=== PATIENT | male | born 1960 | race Caucasian/White ===

== ENCOUNTER 2018-04-10 06:40 | Inpatient (IN) ==
--- NOTE | 2018-03-24 09:21 | Anesthesiology Consultation ---
Date of Service March 24, 2018 Assessment & Plan (1) Encounter for pre-operative examination: Chart Review Chart Review: Acceptable Risk for Surgery and Patient seen in Pre Admission Testing Teaching & Discussion Instructed NPO after midnight before surgery, except medications with 15 cc of water. Medication instructions provided according to the PAT guidelines. History Surgery Operation Date: 04/10/18 13:00 Proposed Procedures p Right Total Hip Arthroplasty - Gabe Lopez MD Height/Weight Height: 5 ft 11 in Weight: 180.8 kg Allergies Allergy/AdvReac Type Severity Reaction Status Date / Time cephalexin Allergy Intermediate HIVES WITH Verified 03/20/18 13:18 SHORTNESS OF BREATH Medications Home Medications Medication Instructions Recorded Confirmed Last Taken naproxen sodium [Aleve] 440 mg PO BID PRN 03/20/18 03/20/18 Unknown Past Medical History Medical History Morbid obesity Osteoarthritis Past Family History Family History Sister Family history of diabetes mellitus Past Surgical History Surgical History History of appendectomy AGE 4 History of colonoscopy Past Anesthesia History No Hx of Anesthesia Complications and No Family Hx of Anesthesia Complications History of PONV No Motion Sickness Screening History of Motion Sickness: No Social History Smoking Status: Never smoker Do You Dip or Chew Tobacco: No Hx Alcohol Use: Yes Alcohol type: beer alcohol intake frequency: a few times a week Hx Substance Use: No substance use type: does not use Exercise / Class Metabolic Activity III < 4 Walking/Shop/Light housework (limited activity 2/2 hip pain currently. No SOB or CP with ambulation/grocery shopping) Review of Systems Pt denies any recent chest pain, shortness of breath, palpitations, cough, fever or URI. Physical Exam Vital Signs BP: 147/89 P: 62bpm SPO2: 93% RA T: 98.2 F R: 22 ENMT Mouth: + chipped teeth (few molars); no dental restorations and no loose teeth Thyromental Distance: > or= 3.5 Finger Breadths (3.5) Mallampati Class: II Neck normal visual inspection, + short neck and + thick neck; neck extension not limited Respiratory + labored breathing (mildly) Auscultation: + wheezes (end expiratory L lung) Cardiovascular Rate/Rhythm: regular rate and regular rhythm Heart Sounds: no murmur Vessels: no carotid bruit Extremities: no edema Skin Numerous skin tags on eyelids. Testing Electrocardiogram Date: 03/24/18 Findings: + NSR @ (60) NSIVCD. Compared to 07/02/15 EKG, TW inversion now evident in inferior leads. ( Lead III only) Chest X-Ray Date: 03/24/18 Findings: + NAD Laboratory Results 03/24/18 09:38 03/24/18 09:38 Blood Type A Positive 03/24/18 09:38 Antibody Screen NEGATIVE 03/24/18 09:38 PT 10.0 Seconds (9.0-12.0) 03/24/18 09:38 INR 1.0 (0.9-1.1) 03/24/18 09:38 APTT 24.2 Seconds (21.0-31.0) 03/24/18 09:38 Hemoglobin A1c 5.7 % (4.5-5.6) H 03/24/18 09:38
--- NOTE | 2018-03-24 09:30 | PAT Medication Instructions ---
Medication Instructions Date of Service March 24, 2018 Home Medications naproxen sodium [Aleve] 440 mg PO BID PRN ASK your surgeon for instructions naproxen sodium [Aleve] 440 mg PO BID PRN Other Notes If you have any questions please call us at [phone] or [phone] or [phone] or [phone]
--- NOTE | 2018-03-24 10:05 | XRay Report ---
XR chest Pre-admission PA/Lat CLINICAL HISTORY: pat preoperative evaluation COMPARISON STUDY: 07/02/2015 FINDINGS: The bones soft tissues and hemidiaphragms are normal. The cardiomediastinal silhouette is n ormal. The lungs are clear. The pulmonary vasculature is normal. IMPRESSION: Negative chest. The above report was generated using voice recognition software. It may contain grammatical, syntax or spelling errors. Electronically signed by: Tom Cárdenas M.D. 03/24/2018 10:03 AM
[2018-03-24 10:25] LABS: Basophils # (auto) 0.04 K/uL (0-0.2); Basophils % (auto) 0.6 %; Eosinophils # (auto) 0.35 K/uL (0-0.5); Eosinophils % (auto) 5.2 %; Hemoglobin 14.3 g/dL (14.0-18.0); Immature Granulocytes # (auto) 0.01 K/uL (0.00-0.02); Immature Granulocytes % (auto) 0.1 %; Lymphocytes # (auto) 1.55 K/uL (1.2-3.4); Lymphocytes % (auto) 22.8 %; Mean Corpuscular Hgb Conc 32.5 g/dL (32-36); Mean Corpuscular Volume 92.1 fL (80-100); Mean Platelet Volume 10.3 fL (7.4-10.4); Monocytes # (auto) 0.71 K/uL (0.11-0.59); Monocytes % (auto) 10.5 %; Neutrophils # (auto) 4.13 K/uL (1.4-6.5); Neutrophils % (auto) 60.8 %; Platelet Count 186 K/uL (130-400); RDW Coefficient of Variation 12.8 % (11.5-14.5); RDW Standard Deviation 43.1 fL (36.4-46.3); Red Blood Count 4.78 M/uL (4.7-6.1); White Blood Count 6.79 K/uL (4.8-10.8)
[2018-03-24 10:37] LABS: Partial Thromboplastin Ratio 0.9; Partial Thromboplastin Time 24.2 Seconds (21.0-31.0)
[2018-03-24 10:48] LABS: BUN Creatinine Ratio 14.8 (10-20); Calcium 8.7 mg/dl (8.5-10.1); Creatinine Clr Calc Pharmacy 136.3 ml/min; Est GFR (African American) 98.6; Est GFR (Non-African American) 85.1; Potassium 4.3 mmol/L (3.5-5.1)
[2018-03-24 11:16] LABS: Estimated Average Glucose 117 mg/dl
--- NOTE | 2018-04-05 18:34 | History and Physical Report ---
DATE OF ADMISSION: 04/10/2018 CHIEF COMPLAINT: Right hip pain. HISTORY OF PRESENT ILLNESS: Patient is a 57-year-old gentleman who presents with about 2 to 3-year history of gradually increasing right hip pain and discomfort. It has gotten to the point where it hurts him all the time. The more he walks, the more it hurts. He describes groin and thigh pain, some occasional knee pain. No swelling. He has been taking the antiinflammatories, which take the edge off at best. He has difficulty going up and down steps. He can tie his own shows and put his socks on. He would like to proceed with surgical treatment. PAST MEDICAL HISTORY: 1. Morbid obesity with a BMI of 55. 2. Sleep apnea. 3. Back pain. PAST SURGICAL HISTORY: Appendectomy. ALLERGIES: None. MEDICATIONS: Current medicines are antiinflammatories. SOCIAL HISTORY: A 57-year-old male, currently retired. 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 He does not smoke. FAMILY HISTORY: Noncontributory. REVIEW OF SYSTEMS: Negative for diabetes, neurologic problems, vascular problems, bleeding disorders. No chest pain, no shortness of breath. No history of DVT or PE. PHYSICAL EXAMINATION: GENERAL: A large middle-aged male. HEENT: Benign. NECK: Supple. No lymphadenopathy. RESPIRATORY: Lungs are clear to auscultation. CARDIOVASCULAR: Heart has a regular rate and rhythm. GASTROINTESTINAL: Abdomen is soft, nontender, nondistended. EXTREMITIES: Grossly neurovascularly intact except as follows: Examination of the right hip and leg reveals patient walks with bit of a limp, fairly large soft tissue envelope. Leg lengths appear fairly equal. He has a very stiff hip with pain with any type of motion. He can internally rotate to -10, external rotation to 20 degrees. Negative straight leg raise. No knee effusion. IMAGING: X-rays of the right hip were reviewed, show advanced right hip DJD. He has complete loss of his joint space. ASSESSMENT: A 57-year-old morbidly obese gentleman with advanced right hip degenerative joint disease. He has failed conservative treatment and would like to have his right hip replaced. PLAN: We had a long discussion as far as treatment. He would like to have his hip replaced. I did tell him with his size and obesity he is at increased risk for infection as well as complications such as blood clots and lung and cardiac problems. He is fully aware of this and would like to proceed. The risks and benefits of right total hip replacement were explained to the patient including but not limited to DVT, PE, , infection, neurological injury, vascular injury, bleeding problem, pain, limited range of motion, stiffness, failure to relieve his symptoms, persistent pain, etc. The patient understands and desires to proceed. Informed consent is obtained. Patient does live by himself. He is hoping to be discharged to home using [facility] home health program.
[~2018-04-10 06:40] MED LIST: ACETAMINOPHEN 500 MG TAB PO SCH; BUPIVACAINE 0.5 % 5 MG/1 ML PF 10ML VIAL ONE; CEFAZOLIN 3000MG 65 ML IV SCH; FAMOTIDINE 20 MG TAB PO SCH; GABAPENTIN 300 MG x 2 PO SCH; LR 60ML/HR IV SCH; METOCLOPRAMIDE HCL 10 MG TABLET PO SCH; SCOPOLAMINE 1.5 MG TDSY TD SCH; TRANEXAMIC ACID 1,000 MG **IV Pre-op IV SCH
--- NOTE | 2018-04-10 06:54 | History & Physical Bridge Note ---
Date of Service April 10, 2018 History & Physical Bridge Note I have examined the patient, reviewed the History & Physical and in the interval since the performance of the History & Physical I have noted the following changes of clinical significance: no changes noted
[2018-04-10] MEDS: LR 500ML BOLUS, THEN 15ML/HR IV SCH ×2 (07:10→13:53)
[2018-04-10] MEDS ORDERED: VANCOMYCIN CONSULT ACTIVE PRN ×2 (07:23→14:03)
[2018-04-10] MEDS ORDERED: VANCOMYCIN HCL 2,750 MG in SODIUM CHLORIDE 0.9% 500 ML IV SCH ×2 (07:30→20:00)
[2018-04-10] MEDS ORDERED: MoRPHine SULFATE PF 1 MG/ML 10 ML AMP/VIAL ONE (07:57)
[2018-04-10] MEDS ORDERED: fentaNYL citrate 100 MCG/2 ML VIAL ONE (07:58)
[2018-04-10] MEDS ORDERED: MIDAZOLAM HCL 1 MG/ML 2ML VIAL ONE ×3 (07:58→11:27)
[2018-04-10] MEDS ORDERED: NALOXONE HCL 1 MG in SODIUM CHLORIDE 0.9% 1000ML 1,000 ML IV PRN (08:49)
[2018-04-10] MEDS ORDERED: NALOXONE HCL 0.08 MG in SYRINGE 1.8 ML IV PRN (08:49)
[2018-04-10] MEDS ORDERED: ATROPINE SULFATE 0.1 MG/ML 10ML SYR IV PRN (08:49)
[2018-04-10] MEDS ORDERED: KETOROLAC 30 MG/ML VIAL IV PRN (08:49)
[2018-04-10] MEDS ORDERED: DiphenhydrAMINE HCL 50 MG/ML VIAL IV PRN (08:49)
[2018-04-10] MEDS ORDERED: ePHEDrine sulfate 50 MG/ML AMP IV PRN ×2 (08:49)
[2018-04-10] MEDS ORDERED: NALBUPHINE HCL INJ 10 MG/ML AMP IV PRN (08:49)
[2018-04-10] MEDS ORDERED: ONDANSETRON INJ 2 MG/ML 2 ML VIAL IV PRN (08:49)
[2018-04-10] MEDS ORDERED: MoRPHine SULFATE PF 1 MG/ML 10 ML AMP/VIAL INT SPINAL ONE (08:49)
[2018-04-10] MEDS ORDERED: LACTATED RINGER'S 500 ML IV PRN (08:49)
[2018-04-10] MEDS ORDERED: NALOXONE HCL 0.4 MG/1 ML VIAL/CARP IV PRN ×2 (08:49→14:03)
[2018-04-10] MEDS ORDERED: BACITRACIN INJ 50,000 UNIT VIAL ONE (08:56)
[2018-04-10] MEDS ORDERED: BUPIVACAINE/EPINEPHRINE 0.5% MPF 1:200,000 30 ML VIAL ONE (08:56)
[2018-04-10] MEDS ORDERED: HYDROmorphone INJ 0.5 MG/0.5 ML SYR IV PRN ×2 (09:00→14:03)
[2018-04-10] MEDS ORDERED: SODIUM CHLORIDE 0.9% 1000ML 1,000 ML IV SCH (09:00)
[2018-04-10] MEDS ORDERED: KETAMINE HCL INJ 50 MG/ML 10 ML VIAL ONE (09:00)
[2018-04-10] MEDS ORDERED: NO NARCOTICS OR SEDATIVES SCH (09:00)
[2018-04-10] MEDS ORDERED: ePHEDrine sulfate 50 MG/ML AMP ONE (10:28)
[2018-04-10] MEDS ORDERED: PROPOFOL IV EMULSION 10 MG/ML 20 ML VIAL IV ONE (10:28)
[2018-04-10] MEDS ORDERED: PHENYLEPHRINE 100MCG/ML 5ML SYR ONE (10:28)
[2018-04-10] MEDS ORDERED: ePHEDrine sulfate 50 MG/ML SYR ONE (10:28)
[2018-04-10] MEDS ORDERED: DiphenhydrAMINE HCL 50 MG/ML VIAL ONE (10:52)
[2018-04-10] MEDS ORDERED: HydrALAZINE HCL 20 MG/ML VIAL ONE (11:15)
[2018-04-10] MEDS ORDERED: REMIFENTANIL HCL 1 MG VIAL ONE (12:21)
--- NOTE | 2018-04-10 13:04 | Post Operative Brief Note ---
Immediate Post Op Note v1 Date of Surgery April 10, 2018 Pre & Post Diagnosis Operation Date: 04/10/18 09:05 Pre-Op Diagnosis: Right Hip Degenerative Joint Disease Post-Op Diagnosis: Right Hip Degenerative Joint Disease Procedure Operation Date: 04/10/18 09:05 Actual Procedures p Right Total Hip Replacement(Right) - Gabe Lopez MD Surgeon Gabe Lopez MD Insurance Collector Evelyne, PAC Estimated Blood Loss 500 Findings Consistent with Post-Op Diagnosis Fluids 1800 cc Specimens Right Femoral Head Drains Victor Catheter (16fr victor catheter placed by Amrita Stubbs PA-C, without difficulty; victor demonstrates clear yellow urine. Output measured and recorded by anesthesia.) Anesthesia Type Spinal MAC Complications none Disposition Accompanied Patient To Recovery: Yes Disposition: Recovery Room
--- NOTE | 2018-04-10 13:43 | Anesthesiology Progress Note ---
Date of Service April 10, 2018 Anesthesia Post Procedure Vital Signs Vital Signs: Temp Pulse Resp BP Pulse Ox 04/10/18 13:35 69 18 108/73 98 04/10/18 13:25 75 20 106/64 98 04/10/18 13:15 78 20 94/59 L 100 04/10/18 13:09 37.3 C 77 20 109/65 99 04/10/18 07:25 36.8 C 64 20 140/76 93 Pain Intensity Right Hip: Pain Intensity: 6 Notes Mental Status: alert / awake / arousable Patient Amnestic to Procedure: Yes Nausea / Vomiting: adequately controlled Pain: adequately controlled Airway Patency, RR, SpO2: stable & adequate BP & HR: stable & adequate Hydration State: stable & adequate Anesthetic Complications: no major complications apparent and Pt Satisfied with anesthetic care
[2018-04-10] MEDS: [UNRECOGNIZED DRUG - REMARK] SCH ×2 (13:52→13:54)
[2018-04-10] MEDS ORDERED: BISACODYL 10 MG SUPP PR PRN (14:03)
[2018-04-10] MEDS ORDERED: TAMSULOSIN HCL 0.4 MG CAP PO PRN (14:03)
[2018-04-10] MEDS ORDERED: ALUMINUM/MAGNESIUM SUSP 30 ML UDC PO PRN (14:03)
[2018-04-10] MEDS ORDERED: MAGNESIUM HYDROXIDE SUSP 30 ML UDC PO PRN (14:03)
--- NOTE | 2018-04-10 14:16 | XRay Report ---
XR hip 1V RT w pelvis CLINICAL HISTORY: Postoperative evaluation. COMPARISON: Pelvis and right hip radiographs February 20, 2018. FINDINGS: Alignment of the total right hip arthroplasty is anatomic. There are 2 acetabular screws. There are skin vi. There are no unexpected radiopaque foreign bodies. IMPRESSION: Expected findings following total right hip arthroplasty. Electronically signed by: Thompson Webster M.D. 04/10/2018 2:15 PM
[2018-04-10] MEDS: SODIUM CHLORIDE 0.9% 1000ML 1,000 ML IV SCH ×2 (14:38→20:08)
[2018-04-10] MEDS: ACETAMINOPHEN 500 MG TAB PO SCH ×2 (14:40→21:42)
[2018-04-10] MEDS: CHECK SCOPOLAMINE PATCH PLACEMENT SCH (16:45)
[2018-04-10] MEDS: ASCORBIC ACID 500 MG TAB PO SCH (16:46)
[2018-04-10] MEDS: FERROUS GLUCONATE 324 MG TAB PO SCH (16:46)
[2018-04-10] MEDS ORDERED: TRANEXAMIC ACID 1,000 MG in 0.9 % SODIUM CHLORIDE 100 ML IV SCH (19:00)
[2018-04-10] MEDS: SENNA 8.6 MG TAB PO SCH (20:22)
[2018-04-10] MEDS: DOCUSATE SODIUM 100 MG CAP PO SCH (20:22)
--- NOTE | 2018-04-10 22:12 | Progress Note ---
DATE: 04/10/2018 SUBJECTIVE: A 57-year-old gentleman postop from a right total hip replacement. He has done pretty well. He is not having any pain. No chest pain or shortness of breath. Not feeling dizzy or lightheaded. PHYSICAL EXAMINATION: VITAL SIGNS: Temperature 36.8. Vital signs stable. GENERAL: Today shows a pleasant very large middle-aged male lying in bed, looks comfortable. LUNGS: Clear to auscultation. HEART: Regular rate and rhythm. ABDOMEN: Soft, nontender, nondistended. EXTREMITIES: Grossly neurovascularly intact except as follows: Examination of right hip and leg reveals, leg lengths were equal. Hip is located. His dressing is clean, dry, and intact. He can dorsiflex and plantarflex his foot appropriately. He is neurologically intact. X-RAYS: X-rays of the right hip from recovery room were reviewed. It shows right uncemented total hip arthroplasty. Components looked to be in good position. No signs of problems. ASSESSMENT: A 57-year-old morbidly obese gentleman postop from a right hip replacement, doing pretty well. Surgery itself was quite challenging, but patient is doing well. His pain is controlled. He appears medically stable. PLAN: 1. DVT prophylaxis including thigh-high TEDs, SCDs, and aspirin twice a day. 2. PT/OT. Weightbear as tolerated. Right total hip protocol. 3. Pain control, doing well with current pain regimen. 4. IV antibiotics x24 hours. 5. Disposition: He is planning to be discharged to home with some home health and with the assistance of his sister once medically stable and recovered.
[2018-04-10] MEDS: ASPIRIN 81 MG ECTAB PO SCH (22:43)
--- NOTE | 2018-04-10 23:55 | Operative Report ---
DATE OF OPERATION: 04/10/2018 SURGEON: Gabe bolaños MD ASBESTOS WORKER: CITLALY Rojas PREOPERATIVE DIAGNOSIS: Right hip degenerative joint disease. POSTOPERATIVE DIAGNOSIS: Same. PROCEDURE PERFORMED: Right uncemented total hip arthroplasty. COMPLICATIONS: None. ESTIMATED BLOOD LOSS: 500 mL. FLUID REPLACEMENT: 1800 mL crystalloid fluid replacement. ANESTHESIA: Spinal. DRAINS: None. SPECIMENS: Right femoral head sent for pathology. OPERATIVE INDICATIONS: The patient is a 57-year-old morbidly obese gentleman with a BMI of 55.6. He has had a long history of right hip pain and discomfort. It has gotten to the point where it is really limiting his activities. He cannot walk more than a couple blocks. He cannot put his shoes and socks on. X-ray showed advanced hip arthritis. The patient elects to proceed with operative treatment. OPERATIVE FINDINGS: Operative findings revealed a very large soft tissue envelope. He had a very stiff hip with very little offset and a very short neck length. He had grade 4 [id number]-[id number] disease of the femoral head and acetabulum. OPERATIVE IMPLANTS: Operative implants consisted of: 1. Biomet size 54 G7 acetabular shell. 2. A 6.5 cancellous acetabular screws, one at 35 mm in length, one at 25 mm in length. 3. An apex hole eliminator. 4. A highly cross-linked polyethylene liner with a 54 mm outer diameter and 36 mm inner diameter. 5. DePuy size 11 KLA Corail femoral stem. 6. A -2/36 mm ceramic articular ball. OPERATIVE PROCEDURE: The patient was taken to the operating room, identified, and placed on the operating table in supine position. All contact areas were appropriately padded. IV antibiotics were provided by anesthesia team. A spinal anesthetic had been implemented in the holding area. The patient did receive vancomycin preoperatively due to his adverse reaction to cephalosporins in the past. A Huizar catheter was placed in sterile fashion. The patient was then placed in the left lateral decubitus position. This took about an extra 10 minutes of positioning this gentleman due to his large size and morbid obesity. He was positioned using a Stulberg hip positioner. Right hip and leg were then prepped and draped in usual sterile fashion. A posterolateral approach to the right hip was then performed through a curvilinear incision centered over the greater trochanter. Sharp dissection was carried through the subcutaneous tissue down to the level of the IT band and gluteal fascia. The soft tissue envelope was excessively thick about 6 inches in total. The IT band and gluteal fascia were then incised longitudinally in line with skin incision. The muscles and tissues were quite tight and contracted. The posterior capsule and external rotators were then released from the posterior aspect of the hip joint as a single layer, taking great care to protect the sciatic nerve at all times. I did have to release the gluteal sling in order to adequately release this gentleman's hip in order to do the surgery. The gluteal sling was released about 1 cm posterior to its attachment to the femur. Great care was taken to protect the sciatic nerve. The hip was then internally rotated and dislocated. Femoral neck osteotomy cut was made just a couple of millimeters above the lesser trochanter. The patient had a very short neck length, very little offset. The femur was then retracted anteriorly. I did have to do some release of the superior and anterior capsule in order to mobilize this hip anteriorly. The acetabulum was cleaned of all debris. The labrum was excised. I then reamed the acetabulum beginning with a size 47 and progressing up to 53. A 54 mm Biomet G7 acetabular shell was then placed in about 20 degrees of anteversion and 40 degrees of lateral opening. We worked hard to get this in proper position. It was fixed with two 6.5 cancellous acetabular screws. I did remove some osteophytes anteriorly. Attention was drawn to the femur. The proximal femur was entered with a cookie cutter followed by a canal finder. I then broached beginning with size 8 and progressing up to a 10. We got pretty good fit with the 10 and we elected to use this. We then trialed the hip. The +5 articular ball was just too tight and I could not even get it relocated. I could relocate the hip with the +1.5/36 mm articular ball. Due to his large soft tissue nature, there was impingement with flexion and internal rotation and I elected to place a kirby inferior and posterior to maximize his stability. The hip was fully stable in full extension and external rotation. It was a bit tight actually in extension. We elected to use these implants. All trial implants were removed. Malo hole eliminator was placed. A Biomet highly cross-linked polyethylene liner with a kirby was then placed inferior and posterior. We then placed a size 10 KLA stem. We impacted this in position. I used a +1.5/36 mm ceramic articular ball. However, we had great difficulty trying to relocate this due to soft tissue tightness. I did not relocate the hip even after about an hour of trying. We could get it inferior to the acetabulum, but we could not get it relocated in the acetabulum. My suspicion was that the offset was just too high in the hip abductors and were just too tight. After multiple attempts, we elected to place a shorter neck length. We removed the head from the stem. Upon doing this, the femoral stem came out the canal about 1 cm. Therefore, I broached to a size 11 and placed a size 11 KLA stem which had excellent fit. We then trialed the hip and relocated with a -2 articular ball. The hip was stable. Although this was a metal ball and not what I had planned, I felt this was the only option considering this gentleman's extreme soft tissue tightness. I then placed the -2/36 mm metal articular ball. Hip was located. It was found to be stable. We elected to proceed with closing. The wound was irrigated with copious amounts of pulsatile lavage solution. I did inject locally with 60 mL of 0.5% Marcaine with epinephrine. The posterior capsule and external rotators were repaired as a single layer through drill holes in the posterior trochanter. The gluteal sling was then repaired with #1 PDS suture in a [id number] fashion. The IT band and gluteal fascia were then closed with #1 PDS suture in running fashion. Subcutaneous tissue was then closed with 2 layers, with the deep layer with #2 Vicryl sutures and the subcutaneous tissue with 2-0 Dexon suture in a buried interrupted fashion. The skin was closed with skin vi. Leg was then cleaned and dried and a sterile dressing of Xeroform, 4 x 4's, ABD pad, and foam tape was applied. The patient was then transferred to the recovery room in stable condition. The patient tolerated the procedure well with no complications. This procedure took about 3 times what a normal hip replacement would due to the patient's morbid obesity and large stature. It took extra time positioning him, performing exposure, and performing the entire operation. It was exceedingly difficult. I do think the reduction was made a bit more difficult as by the time we were doing this, some of his spinal paralysis had probably worn off some, his muscles were again a bit tight. I attest to the content of the Intraoperative Record and any orders documented therein. Any exceptions are noted below. LEEANN
[2018-04-11] MEDS: CHECK SCOPOLAMINE PATCH PLACEMENT SCH (00:34)
[2018-04-11] MEDS: SODIUM CHLORIDE 0.9% 1000ML 1,000 ML IV SCH (01:42)
[2018-04-11] MEDS ORDERED: DC INTRASPINAL MORPHINE SCH (02:49)
[2018-04-11] MEDS ORDERED: OXYCODONE HCL IR 5 MG TAB (IMMEDIATE RELEASE) PO PRN (03:00)
[2018-04-11] MEDS ORDERED: ONDANSETRON INJ 2 MG/ML 2 ML VIAL IV PRN (03:00)
[2018-04-11] MEDS ORDERED: METOCLOPRAMIDE HCL INJ 5 MG/ML 2 ML VIAL IV PRN (03:00)
[2018-04-11] MEDS: ACETAMINOPHEN 500 MG TAB PO SCH ×3 (06:11→21:49)
[2018-04-11] MEDS: KETOROLAC 30 MG/ML VIAL IV SCH ×4 (06:11→23:31)
[2018-04-11] MEDS ORDERED: Nursing to Pharmacy Communication ONE (06:40)
[2018-04-11 06:54] LABS: Basophils # (auto) 0.02 K/uL (0-0.2); Basophils % (auto) 0.2 %; Eosinophils # (auto) 0.16 K/uL (0-0.5); Eosinophils % (auto) 1.5 %; Hematocrit (blood only) 37.8 % (42-52); Hemoglobin 12.3 g/dL (14.0-18.0); Immature Granulocytes # (auto) 0.02 K/uL (0.00-0.02); Immature Granulocytes % (auto) 0.2 %; Lymphocytes # (auto) 0.66 K/uL (1.2-3.4); Lymphocytes % (auto) 6.1 %; Mean Corpuscular Hgb Conc 32.5 g/dL (32-36); Mean Corpuscular Volume 92.6 fL (80-100); Mean Platelet Volume 9.7 fL (7.4-10.4); Monocytes # (auto) 0.67 K/uL (0.11-0.59); Monocytes % (auto) 6.2 %; Neutrophils # (auto) 9.28 K/uL (1.4-6.5); Neutrophils % (auto) 85.8 %; Platelet Count 145 K/uL (130-400); RDW Coefficient of Variation 13.2 % (11.5-14.5); RDW Standard Deviation 44.5 fL (36.4-46.3); Red Blood Count 4.08 M/uL (4.7-6.1); White Blood Count 10.81 K/uL (4.8-10.8)
[2018-04-11 07:28] LABS: BUN Creatinine Ratio 13.4 (10-20); Calcium 7.8 mg/dl (8.5-10.1); Creatinine Clr Calc Pharmacy 69.4 ml/min; Est GFR (African American) 44.6; Est GFR (Non-African American) 38.5; Potassium 4.1 mmol/L (3.5-5.1)
[2018-04-11] MEDS: FERROUS GLUCONATE 324 MG TAB PO SCH ×2 (07:33→16:09)
[2018-04-11] MEDS: ASCORBIC ACID 500 MG TAB PO SCH ×2 (07:33→16:09)
--- NOTE | 2018-04-11 07:47 | Progress Note ---
DATE: 04/11/2018 SUBJECTIVE: A 57-year-old gentleman postop day 1 from right hip replacement. He is doing pretty well. Has a little bit sore in the middle of the night last night, but doing better this morning. No chest pain or shortness of breath. Not feeling dizzy or lightheaded. OBJECTIVE: VITAL SIGNS: Temperature 36.8. Vital signs stable. GENERAL: Physical examination shows a large middle-aged male lying in bed, looks reasonably comfortable. EXTREMITIES: Examination of the right leg reveals the leg lengths to be equal. His hip is located. Dressing is clean, dry, and intact. He can dorsiflex and plantarflex his foot appropriately. He is neurologically intact. LABORATORY DATA: Hemoglobin 12.3. Hematocrit 37.8. Electrolytes are pending. ASSESSMENT: A 57-year-old gentleman postop day 1 from right hip replacement, doing pretty well. Pain has been reasonably well controlled. Hip is located. He is neurologically intact. PLAN: 1. DVT prophylaxis including thigh TEDs, SCDs, and aspirin twice a day. 2. PT/OT. Weight bear as tolerated. Right total hip protocol. 3. Pain control, doing well with current pain regimen. 4. Disposition: He is planning to be discharged to home likely with some home health once adequately recovered. His sister, I believe, is going to stay around and help him as well.
--- NOTE | 2018-04-11 08:24 | Anesthesiology Progress Note ---
Date of Service April 11, 2018 Anesthesia Post Procedure Vital Signs Vital Signs: Temp Pulse Resp BP BP Pulse Ox 04/11/18 07:09 36.8 C 71 18 115/73 94 04/11/18 03:36 37.2 C 74 18 121/74 94 04/11/18 02:00 18 91 04/11/18 01:00 16 92 04/11/18 00:00 20 93 04/10/18 23:55 37.1 C 75 18 88/62 L 100/66 92 04/10/18 23:00 18 93 04/10/18 22:00 18 92 04/10/18 21:00 79 20 92 04/10/18 20:00 85 14 93 04/10/18 19:01 16 95 04/10/18 19:00 36.8 C 78 18 102/71 96 04/10/18 18:00 18 95 04/10/18 17:00 36.4 C L 75 16 94/66 L 97 04/10/18 16:09 36.6 C 75 16 101/70 100 04/10/18 16:00 16 98 04/10/18 15:00 36.5 C 73 18 123/71 96 04/10/18 14:59 18 92 04/10/18 14:25 78 18 123/80 98 04/10/18 14:00 36.9 C 76 18 98/64 L 93 04/10/18 13:45 36.9 C 72 18 117/54 L 98 04/10/18 13:35 69 18 108/73 98 04/10/18 13:25 75 20 106/64 98 04/10/18 13:15 78 20 94/59 L 100 04/10/18 13:09 37.3 C 77 20 109/65 99 Pain Intensity Right Hip: Pain Intensity: 2 Notes Mental Status: alert / awake / arousable and participated in evaluation Patient Amnestic to Procedure: Yes Nausea / Vomiting: adequately controlled Pain: adequately controlled Airway Patency, RR, SpO2: stable & adequate BP & HR: stable & adequate Hydration State: stable & adequate Neuraxial Anesthesia: was administered and sensory block resolved Anesthetic Complications: no major complications apparent and Pt Satisfied with anesthetic care
[2018-04-11] MEDS: MULTIVITAMIN TAB PO SCH (08:47)
[2018-04-11] MEDS: ASPIRIN 81 MG ECTAB PO SCH ×2 (08:47→20:18)
[2018-04-11] MEDS: TAPENTADOL HCL ER 50 MG TABCR PO SCH ×2 (08:50→20:18)
[2018-04-11] MEDS: DOCUSATE SODIUM 100 MG CAP PO SCH ×2 (08:51→20:18)
[2018-04-11] MEDS ORDERED: ASPIRIN 81 MG ECTAB PO SCH (09:00)
[2018-04-11] MEDS: SENNA 8.6 MG TAB PO SCH (20:18)
[2018-04-12] MEDS: KETOROLAC 30 MG/ML VIAL IV SCH (05:27)
[2018-04-12] MEDS: ACETAMINOPHEN 500 MG TAB PO SCH (06:12)
[2018-04-12 06:53] LABS: BUN Creatinine Ratio 13.6 (10-20); Calcium 8.2 mg/dl (8.5-10.1); Creatinine Clr Calc Pharmacy 57.9 ml/min; Est GFR (African American) 35.9; Est GFR (Non-African American) 30.9; Potassium 3.9 mmol/L (3.5-5.1)
[2018-04-12 07:29] VITALS: PULSE 63; TEMP 97.7; O2SAT 95
[2018-04-12] MEDS: FERROUS GLUCONATE 324 MG TAB PO SCH (08:58)
[2018-04-12] MEDS: DOCUSATE SODIUM 100 MG CAP PO SCH (08:58)
[2018-04-12] MEDS: ASCORBIC ACID 500 MG TAB PO SCH (08:58)
[2018-04-12] MEDS: ASPIRIN 81 MG ECTAB PO SCH (08:59)
[2018-04-12] MEDS: MULTIVITAMIN TAB PO SCH (08:59)
[2018-04-12] MEDS: TAPENTADOL HCL ER 50 MG TABCR PO SCH (08:59)
[2018-04-12 09:37] VITALS: BP 122/74
--- NOTE | 2018-04-12 09:48 | Progress Note ---
DATE: 04/12/2018 SUBJECTIVE: A 57-year-old gentleman postop day 2 from right hip replacement. He is doing quite well. Pain is controlled. No chest pain or shortness of breath. Not feeling dizzy or lightheaded. OBJECTIVE: VITAL SIGNS: Temperature is 36.5. Vital signs are stable. PHYSICAL EXAMINATION: GENERAL: Reveals a pleasant, middle-aged male. He is getting around, moving from his bed to the chair this morning quite well. EXTREMITIES: Examination of the right hip reveals incision to be clean, dry and intact. Thigh is soft and supple. Not much in the way of swelling. No significant drainage. He is neurologically intact. Hip is located. ASSESSMENT: A 57-year-old gentleman postoperative day 2 from right hip replacement, doing quite well. His pain is controlled. PLAN: 1. DVT prophylaxis including thigh-high TEDs, SCDs, and aspirin twice a day. 2. PT/OT. Weight bear as tolerated. Right total hip protocol. 3. Pain control, doing well with current pain regimen. 4. Disposition: Plan to discharge to home with home health later today.
--- NOTE | 2018-04-19 08:03 | Discharge Summary ---
ADMITTING PHYSICIAN AND SURGEON: Gabe Lopez MD ADMITTING DIAGNOSIS: Right hip degenerative joint disease. SURGERY PERFORMED: Right total hip arthroplasty. SECONDARY DIAGNOSES: Morbid obesity, sleep apnea, back pain. CONSULTS: None obtained. HISTORY AND PHYSICAL EXAMINATION: Well documented in the patient's chart. HOSPITAL COURSE: The patient was admitted on 04/10/2018, underwent a total hip arthroplasty, tolerated the procedure well. There were no complications. He was transferred to the PACU postoperatively and later to the orthopedic floor for further care. He was given vancomycin for antibiotic prophylaxis, RUBEN stockings, SCDs and aspirin for DVT prophylaxis. Hemoglobin, hematocrit and vital signs were monitored during his hospital stay and remained stable. He did not require any blood transfusions. There were no complications. By postoperative day 2, he was tolerating a regular diet, pain was controlled with oral pain medicine. He was participating in physical therapy. On postop day 2, he was discharged home, set up with home health services. He was given printed discharge instructions including new prescriptions for extra-strength Tylenol, aspirin and oxycodone. Continue his home medications. Continue physical therapies, weightbearing as tolerated, RUBEN stockings, total hip precautions. Follow up in approximately 2 weeks postoperatively or sooner if there are any problems or concerns.
== END 2018-04-12 12:31 | disposition home health service (06) | DRG 470 ==
LOC: ASU 06:40 → 3E 13:08

== ENCOUNTER 2021-10-02 12:31 | Inpatient (IN) ==
--- NOTE | 2021-10-02 13:11 | XRay Report ---
SINGLE VIEW CHEST CLINICAL HISTORY: Preoperative examination. FINDINGS: An AP, portable, upright chest radiograph is compared to study dated 03/24/2018. The examinat ion is degraded by portable technique, large body habitus, and apical lordotic positioning. The hear t is enlarged. There is pulmonary vascular congestion. There is elevation of the right hemidiaphragm with bibasilar atelectasis. Question small pleural effusions. No pneumothorax is seen. The bony thora x is grossly intact. IMPRESSION: 1. Cardiomegaly with pulmonary vascular congestion. 2. Question small pleural effusions. ACT 112: Negative or not required by law. Electronically signed by: Jayce Antoine M.D. 10/02/2021 1:10 PM
--- NOTE | 2021-10-02 13:16 | Emergency Department Note ---
Impression & Plan New onset atrial fibrillation, Dyspnea on exertion, Hypoxia, New onset of congestive heart failure ED Provider Note INFORMANT: Patient ED PROVIDER(S): Guero Kidd MD CHIEF COMPLAINT: New onset A. fib PLAN: Disposition: Admitted Condition: Good Outpatient prescription management: none Referral: None MEDICAL DECISION MAKING: patient presented because of new onset A. fib. History is also concerned due to the shortness of breath. Patient was hypoxic on arrival. He responded well to supplemental oxygen and was feeling better with that. A work-up was initiated. Mild CHF noted on chest x-ray. His CBC and chemistry panel were unremarkable. Coag and troponin negative. BNP was mildly elevated. ECG revealed A. fib at 95 bpm. Acute ischemic changes were noted. The patient was given IV Lasix and Nitropaste. His blood pressure did improve with this. He will need further management in the hospital. [facility] Patient was evaluated in the ER and admitted for further management. Triage Nursing notes reviewed and agree them. Vital Signs: reviewed and remarkable for mild hypoxia and borderline tachycardia Differential diagnosis: Premature contractions, electrolyte abnormality, cardiac dysrhythmia, CHF, thyroid dysfunction, pulmonary embolism, infection, gastrointestinal, as well as other pathologies. Diagnostics interpreted by me: ECG: Twelve-lead ECG reveals a atrial fibrillation at 95 bpm. Left anterior fascicular block and nonspecific ST abnormality. No ST elevation or depression. No PVCs. Cardiac Monitoring: Cardiac monitoring ordered by me: The patient was placed on continuous cardiac monitoring and observed. It revealed A. fib at 104 beats per minute without ectopy. Imaging studies: Chest x-ray is consistent with mild CHF. HPI: The patient is a 60year old male who presents to the Emergency Room with complaints of irregular heartbeat. This started several weeks ago by history and is confirmed by his primary clinic today. Patient went for a visit after not seeing a doctor for about 3 years. He described having palpitations and shortness of breath with exertion. An ECG was performed and he was found to have atrial fibrillation. The patient also notes the following associated symptoms, leg redness and swelling. The patient has noted no relieving factors. Current pain is rated as 0/10. No prior history of A. fib. Pt denies LOC, headache, fevers, chills, diaphoresis, visual changes, neck pain, chest pain, nausea, vomiting, abdominal pain, back pain, melena, hematochezia, urinary symptoms, numbness, weakness, lymphadenopathy,or other complaints. ROS: See above HPI for pertinent positives & negatives. A total of 10 systems reviewed and were otherwise negative. PAST MEDICAL HISTORY:See Below , asthma PAST SURGICAL HISTORY:See Below, hip replacement FAMILY HISTORY:See Below SOCIAL HISTORY:See Below, non-smoker HOME MEDICATIONS:See Below ALLERGIES:See Below VITALS:See Below PHYSICAL EXAMINATION: GENERAL: Awake, alert, mildly dyspneic-appearing, in no distress HENT: Normocephalic, atraumatic. Oropharynx unremarkable. EYES: Normal conjunctiva. Sclera non-icteric. NECK: Inspection normal. Non-tender. Supple. No nuchal rigidity. FROM. No masses. RESPIRATORY: Clear to auscultation. No wheezes. No rales. Normal respiratory effort. CARDIAC: Mildly tachycardic rate. Irregular rhythm. No murmurs. No rubs. Extremities warm and well perfused. Pulses equal. No JVD. GI: Soft, non-distended. No tenderness to palpation. No rebound or guarding. No masses. RECTAL: Deferred. MUSCULOSKELETAL: Atraumatic. Chest examination reveals no tenderness. The back is symmetrical on inspection without obvious abnormality. There is no CVA tenderness to palpation. No joint edema. LOWER EXTREMITIES: Calves are equal size bilaterally and non-tender. 1+ edema. Chronic venous and mild erythematous discoloration which is worse on the right. NEURO: Normal sensorium. No sensory or motor deficits noted. SKIN: No rash or jaundice noted. Guero Kidd MD Past Med/Surg History Medical History Morbid obesity Osteoarthritis Surgical History History of appendectomy AGE 4 History of colonoscopy History of right hip replacement Family History Sister Family history of diabetes mellitus Social History Smoking Status: Never smoker Second Hand Exposure: Yes (ON OCC); Hx Alcohol Use: Yes Alcohol type: beer Hx Substance Use: No Preferred Language: Algerian Communication Ability: Effective Visual Impairment: No Limitations Hearing Ability: Normal Check Weigher Required: No Beliefs That Will Affect Care: None marital status: Single Current Living Situation: Alone current occupational status: retired How many Children do You have: 0 Other Information That Helps Us Care for You: No Feels Safe at Home: Yes Safety Concerns: Feels Safe At This Time Childhood Exposure to Second-Hand Smoke: No caffeine: Yes (coffee) during the past year weight has: increased > 10 lbs Dental Care, Regularly: No Physical Activity Frequency: Does not Exercise Seatbelt Use: never Sunscreen Use: No Do you think of yourself as: straight/heterosexual Gender Identity: Male Assistive Devices: Glasses Allergies Allergies Allergy/AdvReac Type Severity Reaction Status Date / Time cephalexin Allergy Intermediate HIVES WITH Verified 10/02/21 17:15 SHORTNESS OF BREATH Home Meds Home Medications Medication Instructions Recorded Confirmed No Known Home Medications 10/02/21 10/02/21 Results & Data (ED) Vital Signs Vital Signs - 24 hr 10/02/21 12:33 10/02/21 12:31 10/02/21 12:31 Temperature 36.7 C Temperature Source Temporal Artery Scan Pulse Rate 110 H Pulse Rate [Apical] 112 H Pulse Rate from SpO2 Sensor Pulse Rhythm Irregular Pulse Rhythm [Apical] Regular Pulse Strength [Apical] Normal Respiratory Rate 18 28 H Respiratory Effort / Characteristics Non-Labored Short of Breath SOB on Exertion Respiratory Depth Normal Normal Respiratory Pattern Regular Rapid/Shallow Tachypnea Blood Pressure 166/93 H Blood Pressure [Right Arm] 143/103 H Blood Pressure Mean 117 Blood Pressure Mean [Right Arm] 116 Blood Pressure Position Sitting Blood Pressure Position [Right Arm] Sitting Pulse Oximetry 87 L 82 L 94 Oxygen Delivery Method Room Air Room Air Nasal Cannula Nasal Cannula Oxygen Flow Rate 0 3 Sepsis Recent Fever Within 48 Hours No Sepsis New/Unexplained Change in Mental Status No Sepsis Action Taken by Nursing No Action Required Oxygen Flow Rate - Titration 3 Pulse Oximetry Post Tiitration 94 10/02/21 12:31 10/02/21 14:31 10/02/21 12:44 Temperature Temperature Source Pulse Rate 102 H Pulse Rate [Apical] 90 Pulse Rate from SpO2 Sensor 97 H Pulse Rhythm Pulse Rhythm [Apical] Irregular Pulse Strength [Apical] Normal Respiratory Rate 24 21 Respiratory Effort / Characteristics Grunting Short of Breath SOB on Exertion Non-Labored Spontaneous Respiratory Depth Normal Respiratory Pattern Rapid/Shallow Tachypnea Regular Blood Pressure Blood Pressure [Right Arm] Blood Pressure Mean Blood Pressure Mean [Right Arm] Blood Pressure Position Blood Pressure Position [Right Arm] Sitting Pulse Oximetry 96 95 Oxygen Delivery Method Nasal Cannula Nasal Cannula Oxygen Flow Rate 3 3 Sepsis Recent Fever Within 48 Hours Sepsis New/Unexplained Change in Mental Status Sepsis Action Taken by Nursing Oxygen Flow Rate - Titration Pulse Oximetry Post Tiitration 10/02/21 12:50 10/02/21 13:00 10/02/21 13:10 Temperature Temperature Source Pulse Rate 120 H 104 H Pulse Rate [Apical] Pulse Rate from SpO2 Sensor 113 H 82 Pulse Rhythm Pulse Rhythm [Apical] Pulse Strength [Apical] Respiratory Rate 26 H 29 H 23 Respiratory Effort / Characteristics Respiratory Depth Respiratory Pattern Blood Pressure Blood Pressure [Right Arm] Blood Pressure Mean Blood Pressure Mean [Right Arm] Blood Pressure Position Blood Pressure Position [Right Arm] Pulse Oximetry 94 94 Oxygen Delivery Method Oxygen Flow Rate Sepsis Recent Fever Within 48 Hours Sepsis New/Unexplained Change in Mental Status Sepsis Action Taken by Nursing Oxygen Flow Rate - Titration Pulse Oximetry Post Tiitration 10/02/21 13:20 10/02/21 13:24 10/02/21 13:24 Temperature Temperature Source Pulse Rate 107 H Pulse Rate [Apical] Pulse Rate from SpO2 Sensor Pulse Rhythm Pulse Rhythm [Apical] Pulse Strength [Apical] Respiratory Rate 25 H 22 Respiratory Effort / Characteristics Respiratory Depth Respiratory Pattern Blood Pressure 137/97 Blood Pressure [Right Arm] Blood Pressure Mean 110 Blood Pressure Mean [Right Arm] Blood Pressure Position Blood Pressure Position [Right Arm] Pulse Oximetry Oxygen Delivery Method Oxygen Flow Rate Sepsis Recent Fever Within 48 Hours Sepsis New/Unexplained Change in Mental Status Sepsis Action Taken by Nursing Oxygen Flow Rate - Titration Pulse Oximetry Post Tiitration 10/02/21 13:30 10/02/21 13:40 10/02/21 13:50 Temperature Temperature Source Pulse Rate 89 91 H 78 Pulse Rate [Apical] Pulse Rate from SpO2 Sensor 88 81 92 H Pulse Rhythm Pulse Rhythm [Apical] Pulse Strength [Apical] Respiratory Rate 21 21 19 Respiratory Effort / Characteristics Respiratory Depth Respiratory Pattern Blood Pressure Blood Pressure [Right Arm] Blood Pressure Mean Blood Pressure Mean [Right Arm] Blood Pressure Position Blood Pressure Position [Right Arm] Pulse Oximetry 96 97 98 Oxygen Delivery Method Oxygen Flow Rate Sepsis Recent Fever Within 48 Hours Sepsis New/Unexplained Change in Mental Status Sepsis Action Taken by Nursing Oxygen Flow Rate - Titration Pulse Oximetry Post Tiitration 10/02/21 14:00 10/02/21 14:03 10/02/21 14:03 Temperature Temperature Source Pulse Rate 95 H Pulse Rate [Apical] Pulse Rate from SpO2 Sensor 96 H 111 H Pulse Rhythm Pulse Rhythm [Apical] Pulse Strength [Apical] Respiratory Rate 21 18 Respiratory Effort / Characteristics Respiratory Depth Respiratory Pattern Blood Pressure 150/119 H Blood Pressure [Right Arm] Blood Pressure Mean 129 Blood Pressure Mean [Right Arm] Blood Pressure Position Blood Pressure Position [Right Arm] Pulse Oximetry 90 91 Oxygen Delivery Method Oxygen Flow Rate Sepsis Recent Fever Within 48 Hours Sepsis New/Unexplained Change in Mental Status Sepsis Action Taken by Nursing Oxygen Flow Rate - Titration Pulse Oximetry Post Tiitration 10/02/21 14:10 10/02/21 14:20 10/02/21 14:30 Temperature Temperature Source Pulse Rate 89 95 H 86 Pulse Rate [Apical] Pulse Rate from SpO2 Sensor 79 98 H 74 Pulse Rhythm Pulse Rhythm [Apical] Pulse Strength [Apical] Respiratory Rate 24 21 19 Respiratory Effort / Characteristics Respiratory Depth Respiratory Pattern Blood Pressure Blood Pressure [Right Arm] Blood Pressure Mean Blood Pressure Mean [Right Arm] Blood Pressure Position Blood Pressure Position [Right Arm] Pulse Oximetry 96 96 96 Oxygen Delivery Method Oxygen Flow Rate Sepsis Recent Fever Within 48 Hours Sepsis New/Unexplained Change in Mental Status Sepsis Action Taken by Nursing Oxygen Flow Rate - Titration Pulse Oximetry Post Tiitration 10/02/21 14:43 10/02/21 14:50 10/02/21 15:00 Temperature Temperature Source Pulse Rate 96 H 97 H Pulse Rate [Apical] Pulse Rate from SpO2 Sensor 87 92 H 96 H Pulse Rhythm Pulse Rhythm [Apical] Pulse Strength [Apical] Respiratory Rate 25 H 26 H Respiratory Effort / Characteristics Respiratory Depth Respiratory Pattern Blood Pressure Blood Pressure [Right Arm] Blood Pressure Mean Blood Pressure Mean [Right Arm] Blood Pressure Position Blood Pressure Position [Right Arm] Pulse Oximetry 79 L 96 96 Oxygen Delivery Method Oxygen Flow Rate Sepsis Recent Fever Within 48 Hours Sepsis New/Unexplained Change in Mental Status Sepsis Action Taken by Nursing Oxygen Flow Rate - Titration Pulse Oximetry Post Tiitration 10/02/21 15:01 10/02/21 15:01 10/02/21 15:10 Temperature Temperature Source Pulse Rate 92 H 100 H Pulse Rate [Apical] Pulse Rate from SpO2 Sensor 82 80 Pulse Rhythm Pulse Rhythm [Apical] Pulse Strength [Apical] Respiratory Rate 20 22 Respiratory Effort / Characteristics Respiratory Depth Respiratory Pattern Blood Pressure 158/123 H Blood Pressure [Right Arm] Blood Pressure Mean 134 Blood Pressure Mean [Right Arm] Blood Pressure Position Blood Pressure Position [Right Arm] Pulse Oximetry 96 96 Oxygen Delivery Method Oxygen Flow Rate Sepsis Recent Fever Within 48 Hours Sepsis New/Unexplained Change in Mental Status Sepsis Action Taken by Nursing Oxygen Flow Rate - Titration Pulse Oximetry Post Tiitration 10/02/21 15:20 10/02/21 15:30 10/02/21 15:30 Temperature Temperature Source Pulse Rate 84 101 H Pulse Rate [Apical] Pulse Rate from SpO2 Sensor 90 86 Pulse Rhythm Pulse Rhythm [Apical] Pulse Strength [Apical] Respiratory Rate 20 16 Respiratory Effort / Characteristics Respiratory Depth Respiratory Pattern Blood Pressure 173/126 H Blood Pressure [Right Arm] Blood Pressure Mean 141 Blood Pressure Mean [Right Arm] Blood Pressure Position Blood Pressure Position [Right Arm] Pulse Oximetry 97 97 Oxygen Delivery Method Oxygen Flow Rate Sepsis Recent Fever Within 48 Hours Sepsis New/Unexplained Change in Mental Status Sepsis Action Taken by Nursing Oxygen Flow Rate - Titration Pulse Oximetry Post Tiitration 10/02/21 15:40 10/02/21 15:45 10/02/21 15:45 Temperature Temperature Source Pulse Rate 91 H 95 H Pulse Rate [Apical] Pulse Rate from SpO2 Sensor 84 91 H Pulse Rhythm Pulse Rhythm [Apical] Pulse Strength [Apical] Respiratory Rate 24 22 Respiratory Effort / Characteristics Respiratory Depth Respiratory Pattern Blood Pressure 154/129 H Blood Pressure [Right Arm] Blood Pressure Mean 137 Blood Pressure Mean [Right Arm] Blood Pressure Position Blood Pressure Position [Right Arm] Pulse Oximetry 95 97 Oxygen Delivery Method Oxygen Flow Rate Sepsis Recent Fever Within 48 Hours Sepsis New/Unexplained Change in Mental Status Sepsis Action Taken by Nursing Oxygen Flow Rate - Titration Pulse Oximetry Post Tiitration 10/02/21 15:49 10/02/21 15:49 10/02/21 15:50 Temperature Temperature Source Pulse Rate 83 84 Pulse Rate [Apical] Pulse Rate from SpO2 Sensor 73 81 Pulse Rhythm Pulse Rhythm [Apical] Pulse Strength [Apical] Respiratory Rate 23 21 Respiratory Effort / Characteristics Respiratory Depth Respiratory Pattern Blood Pressure 171/111 H Blood Pressure [Right Arm] Blood Pressure Mean 131 Blood Pressure Mean [Right Arm] Blood Pressure Position Blood Pressure Position [Right Arm] Pulse Oximetry 96 97 Oxygen Delivery Method Oxygen Flow Rate Sepsis Recent Fever Within 48 Hours Sepsis New/Unexplained Change in Mental Status Sepsis Action Taken by Nursing Oxygen Flow Rate - Titration Pulse Oximetry Post Tiitration 10/02/21 15:56 10/02/21 15:56 10/02/21 16:16 Temperature Temperature Source Pulse Rate 102 H Pulse Rate [Apical] Pulse Rate from SpO2 Sensor 83 80 Pulse Rhythm Pulse Rhythm [Apical] Pulse Strength [Apical] Respiratory Rate 24 Respiratory Effort / Characteristics Respiratory Depth Respiratory Pattern Blood Pressure 145/86 H Blood Pressure [Right Arm] Blood Pressure Mean 105 Blood Pressure Mean [Right Arm] Blood Pressure Position Blood Pressure Position [Right Arm] Pulse Oximetry 96 88 L Oxygen Delivery Method Oxygen Flow Rate Sepsis Recent Fever Within 48 Hours Sepsis New/Unexplained Change in Mental Status Sepsis Action Taken by Nursing Oxygen Flow Rate - Titration Pulse Oximetry Post Tiitration 10/02/21 16:17 10/02/21 16:17 10/02/21 16:30 Temperature Temperature Source Pulse Rate 100 H 100 H Pulse Rate [Apical] Pulse Rate from SpO2 Sensor 87 84 Pulse Rhythm Pulse Rhythm [Apical] Pulse Strength [Apical] Respiratory Rate 15 16 Respiratory Effort / Characteristics Respiratory Depth Respiratory Pattern Blood Pressure 164/109 H Blood Pressure [Right Arm] Blood Pressure Mean 127 Blood Pressure Mean [Right Arm] Blood Pressure Position Blood Pressure Position [Right Arm] Pulse Oximetry 93 94 Oxygen Delivery Method Oxygen Flow Rate Sepsis Recent Fever Within 48 Hours Sepsis New/Unexplained Change in Mental Status Sepsis Action Taken by Nursing Oxygen Flow Rate - Titration Pulse Oximetry Post Tiitration Laboratory Data Result diagrams: 10/02/21 13:40 10/02/21 13:40 Lab Results 10/02/21 10/02/21 10/02/21 Range/Units 12:55 12:55 12:55 WBC (4.8-10.8) K/ul RBC (4.63-6.08) M/uL Hgb (14.0-18.0) g/dl Hct (40.1-51.0) % MCV (80.0-100.0) fL MCH (25.0-34.0) pg MCHC (32.0-36.0) g/dL RDW Std Deviation (36.4-46.3) fL RDW Coeff of Walt (11.5-14.5) % Plt Count (130-400) K/uL MPV (9.4-12.4) fL Immature Gran % (Auto) % Neut % (Auto) % Lymph % (Auto) % [place] % (Auto) % Eos % (Auto) % Baso % (Auto) % Neut # (Auto) (1.4-6.5) K/uL Lymph # (Auto) (1.2-3.4) K/uL [place] # (Auto) (0.24-0.82) K/uL Eos # (Auto) (0-0.50) K/uL Baso # (Auto) (0-0.2) K/uL Immature Gran # (Auto) (0.00-0.02) K/uL PT Cancelled INR Cancelled APTT Cancelled PTT Ratio Cancelled Sodium Cancelled Potassium Cancelled Chloride Cancelled Carbon Dioxide Cancelled Anion Gap Cancelled BUN Cancelled Creatinine Cancelled Est Cr Clr Drug Dosing Cancelled Est GFR ( Amer) Cancelled Est GFR (Non-Af Amer) Cancelled BUN/Creatinine Ratio Cancelled Glucose Cancelled Calcium Cancelled Magnesium Cancelled Total Bilirubin Cancelled AST Cancelled ALT Cancelled Alkaline Phosphatase Cancelled Troponin I High Sens Cancelled B-Natriuretic Peptide (0-100) pg/ml Total Protein Cancelled Albumin Cancelled Globulin Cancelled Albumin/Globulin Ratio Cancelled TSH Cancelled Urine Color Urine Appearance (Clear) Urine pH (4.5-7.5) Ur Specific Racco[place] (1.000-1.030) Urine Protein (Negative) Urine Glucose (UA) (Negative) Urine Ketones (Negative) Urine Blood (Negative) Urine Nitrite (Negative) Urine Bilirubin (Negative) Urine Urobilinogen (Negative) Ur Leukocyte Esterase (Negative) Urine WBC (Auto) (0-5) /hpf Urine RBC (Auto) (0-4) /hpf U Hyaline Cast (Auto) (0-5) /lpf U Epithel Cells (Auto) (0-5) /lpf Urine Bacteria (Auto) (Negative) SARS-CoV-2, RNA, NAAT (NEGATIVE) 10/02/21 10/02/21 10/02/21 Range/Units 13:35 13:40 13:40 WBC 6.71 (4.8-10.8) K/ul RBC 4.95 (4.63-6.08) M/uL Hgb 14.7 (14.0-18.0) g/dl Hct 45.8 (40.1-51.0) % MCV 92.5 (80.0-100.0) fL MCH 29.7 (25.0-34.0) pg MCHC 32.1 (32.0-36.0) g/dL RDW Std Deviation 46.7 H (36.4-46.3) fL RDW Coeff of Walt 13.7 (11.5-14.5) % Plt Count 170 (130-400) K/uL MPV 10.3 (9.4-12.4) fL Immature Gran % (Auto) 0.4 % Neut % (Auto) 68.5 % Lymph % (Auto) 15.5 % [place] % (Auto) 11.0 % Eos % (Auto) 3.9 % Baso % (Auto) 0.7 % Neut # (Auto) 4.59 (1.4-6.5) K/uL Lymph # (Auto) 1.04 L (1.2-3.4) K/uL [place] # (Auto) 0.74 (0.24-0.82) K/uL Eos # (Auto) 0.26 (0-0.50) K/uL Baso # (Auto) 0.05 (0-0.2) K/uL Immature Gran # (Auto) 0.03 H (0.00-0.02) K/uL PT INR APTT PTT Ratio Sodium Potassium Chloride Carbon Dioxide Anion Gap BUN Creatinine Est Cr Clr Drug Dosing Est GFR ( Amer) Est GFR (Non-Af Amer) BUN/Creatinine Ratio Glucose Calcium Magnesium Total Bilirubin AST ALT Alkaline Phosphatase Troponin I High Sens B-Natriuretic Peptide 178 H (0-100) pg/ml Total Protein Albumin Globulin Albumin/Globulin Ratio TSH Urine Color Urine Appearance (Clear) Urine pH (4.5-7.5) Ur Specific [place]acco[place] (1.000-1.030) Urine Protein (Negative) Urine Glucose (UA) (Negative) Urine Ketones (Negative) Urine Blood (Negative) Urine Nitrite (Negative) Urine Bilirubin (Negative) Urine Urobilinogen (Negative) Ur Leukocyte Esterase (Negative) Urine WBC (Auto) (0-5) /hpf Urine RBC (Auto) (0-4) /hpf U Hyaline Cast (Auto) (0-5) /lpf U Epithel Cells (Auto) (0-5) /lpf Urine Bacteria (Auto) (Negative) SARS-CoV-2, RNA, NAAT NEGATIVE (NEGATIVE) 10/02/21 10/02/21 10/02/21 Range/Units 13:40 14:27 14:27 WBC (4.8-10.8) K/ul RBC (4.63-6.08) M/uL Hgb (14.0-18.0) g/dl Hct (40.1-51.0) % MCV (80.0-100.0) fL MCH (25.0-34.0) pg MCHC (32.0-36.0) g/dL RDW Std Deviation (36.4-46.3) fL RDW Coeff of Walt (11.5-14.5) % Plt Count (130-400) K/uL MPV (9.4-12.4) fL Immature Gran % (Auto) % Neut % (Auto) % Lymph % (Auto) % [place] % (Auto) % Eos % (Auto) % Baso % (Auto) % Neut # (Auto) (1.4-6.5) K/uL Lymph # (Auto) (1.2-3.4) K/uL [place] # (Auto) (0.24-0.82) K/uL Eos # (Auto) (0-0.50) K/uL Baso # (Auto) (0-0.2) K/uL Immature Gran # (Auto) (0.00-0.02) K/uL PT 10.9 INR 1.0 APTT 25.4 PTT Ratio 0.9 Sodium 139 Potassium 4.4 Chloride 101 Carbon Dioxide 32 Anion Gap 6 BUN 16 Creatinine 1.08 Est Cr Clr Drug Dosing 109.6 Est GFR ( Amer) 84.8 Est GFR (Non-Af Amer) 73.2 BUN/Creatinine Ratio 14.8 Glucose 107 H Calcium 9.0 Magnesium 2.0 Total Bilirubin 0.6 AST 20 ALT 20 Alkaline Phosphatase 42 Troponin I High Sens 10.6 B-Natriuretic Peptide (0-100) pg/ml Total Protein 6.9 Albumin 3.9 Globulin 3.0 Albumin/Globulin Ratio 1.3 TSH 1.052 Urine Color Urine Appearance (Clear) Urine pH (4.5-7.5) Ur Specific [place] (1.000-1.030) Urine Protein (Negative) Urine Glucose (UA) (Negative) Urine Ketones (Negative) Urine Blood (Negative) Urine Nitrite (Negative) Urine Bilirubin (Negative) Urine Urobilinogen (Negative) Ur Leukocyte Esterase (Negative) Urine WBC (Auto) (0-5) /hpf Urine RBC (Auto) (0-4) /hpf U Hyaline Cast (Auto) (0-5) /lpf U Epithel Cells (Auto) (0-5) /lpf Urine Bacteria (Auto) (Negative) SARS-CoV-2, RNA, NAAT (NEGATIVE) 10/02/21 Range/Units 14:45 WBC (4.8-10.8) K/ul RBC (4.63-6.08) M/uL Hgb (14.0-18.0) g/dl Hct (40.1-51.0) % MCV (80.0-100.0) fL MCH (25.0-34.0) pg MCHC (32.0-36.0) g/dL RDW Std Deviation (36.4-46.3) fL RDW Coeff of Walt (11.5-14.5) % Plt Count (130-400) K/uL MPV (9.4-12.4) fL Immature Gran % (Auto) % Neut % (Auto) % Lymph % (Auto) % [place] % (Auto) % Eos % (Auto) % Baso % (Auto) % Neut # (Auto) (1.4-6.5) K/uL Lymph # (Auto) (1.2-3.4) K/uL [place] # (Auto) (0.24-0.82) K/uL Eos # (Auto) (0-0.50) K/uL Baso # (Auto) (0-0.2) K/uL Immature Gran # (Auto) (0.00-0.02) K/uL PT INR APTT PTT Ratio Sodium Potassium Chloride Carbon Dioxide Anion Gap BUN Creatinine Est Cr Clr Drug Dosing Est GFR ( Amer) Est GFR (Non-Af Amer) BUN/Creatinine Ratio Glucose Calcium Magnesium Total Bilirubin AST ALT Alkaline Phosphatase Troponin I High Sens B-Natriuretic Peptide (0-100) pg/ml Total Protein Albumin Globulin Albumin/Globulin Ratio TSH Urine Color Yellow Urine Appearance Clear (Clear) Urine pH 6.0 (4.5-7.5) Ur Specific [place] 1.012 (1.000-1.030) Urine Protein Negative (Negative) Urine Glucose (UA) Negative (Negative) Urine Ketones Negative (Negative) Urine Blood Negative (Negative) Urine Nitrite Negative (Negative) Urine Bilirubin Negative (Negative) Urine Urobilinogen Negative (Negative) Ur Leukocyte Esterase Trace H (Negative) Urine WBC (Auto) 1-5 (0-5) /hpf Urine RBC (Auto) 0-4 (0-4) /hpf U Hyaline Cast (Auto) 1-5 (0-5) /lpf U Epithel Cells (Auto) 0-5 (0-5) /lpf Urine Bacteria (Auto) Negative (Negative) SARS-CoV-2, RNA, NAAT (NEGATIVE) Administered Medications Apixaban (Apixaban 5 Mg Tablet) 5 mg PO BID NEHA Stop: 11/01/21 20:59 Last Admin: 10/02/21 19:52 Dose: 5 mg Documented By: AMRiri Furosemide (Furosemide Inj 20 Mg/2 Ml Vial) 40 mg IV Q12H NEHA Stop: 11/01/21 20:59 Last Admin: 10/02/21 19:55 Dose: 40 mg Documented By: AMM Metoprolol Tartrate (Metoprolol Tartrate 50 Mg Tab) 50 mg PO BID NEHA Stop: 11/01/21 20:59 Last Admin: 10/02/21 19:51 Dose: 50 mg Documented By: AMRiri Discontinued Medications Furosemide (Furosemide Inj 20 Mg/2 Ml Vial) 20 mg IV ONE ONE Stop: 10/02/21 15:26 Last Admin: 10/02/21 15:41 Dose: 20 mg Documented By: SYLVIA Nitroglycerin (Nitroglycerin 2% Ointment 30gm Tube) 0.5 inch EXT NOW STA Stop: 10/02/21 15:26 Last Admin: 10/02/21 15:40 Dose: 0.5 inch Documented By: SYLVIA Imaging Data Radiologist's Impression: Chest X-Ray 10/02/21 12:44 SINGLE VIEW CHEST CLINICAL HISTORY: Preoperative examination. FINDINGS: An AP, portable, upright chest radiograph is compared to study dated 03/24/2018. The examination is degraded by portable technique, large body habitus, and apical lordotic positioning. The heart is enlarged. There is pulmonary vascular congestion. There is elevation of the right hemidiaphragm with bibasilar atelectasis. Question small pleural effusions. No pneumothorax is seen. The bony thorax is grossly intact. IMPRESSION: 1. Cardiomegaly with pulmonary vascular congestion. 2. Question small pleural effusions. ACT 112: Negative or not required by law. Electronically signed by: Jayce Antoine M.D. 10/02/2021 1:10 PM Discharge Plan Visit Data Chief Complaint: Arrhythmia/Palpitations Stated Complaint: AFIB ED Provider: Geuro Kidd Discharge Problem: New onset atrial fibrillation, Dyspnea on exertion, Hypoxia, New onset of anabella estive heart failure Patient Disposition: Admitted As Inpatient Discharge Instructions Interventions: ED Discharge Assessment Last Done: 10/02/21 17:57
[2021-10-02 13:57] LABS: Basophils # (auto) 0.05 K/uL (0-0.2); Basophils % (auto) 0.7 %; Eosinophils # (auto) 0.26 K/uL (0-0.50); Eosinophils % (auto) 3.9 %; Hematocrit (blood only) 45.8 % (40.1-51.0); Hemoglobin 14.7 g/dl (14.0-18.0); Immature Granulocytes # (auto) 0.03 K/uL (0.00-0.02); Immature Granulocytes % (auto) 0.4 %; Lymphocytes # (auto) 1.04 K/uL (1.2-3.4); Lymphocytes % (auto) 15.5 %; Mean Corpuscular Hemoglobin 29.7 pg (25.0-34.0); Mean Corpuscular Hgb Conc 32.1 g/dL (32.0-36.0); Mean Corpuscular Volume 92.5 fL (80.0-100.0); Mean Platelet Volume 10.3 fL (9.4-12.4); Monocytes # (auto) 0.74 K/uL (0.24-0.82); Neutrophils # (auto) 4.59 K/uL (1.4-6.5); Neutrophils % (auto) 68.5 %; Platelet Count 170 K/uL (130-400); RDW Coefficient of Variation 13.7 % (11.5-14.5); RDW Standard Deviation 46.7 fL (36.4-46.3); Red Blood Count 4.95 M/uL (4.63-6.08); White Blood Count 6.71 K/ul (4.8-10.8)
[2021-10-02 14:20] LABS: Albumin Globulin Ratio 1.3 (0.9-2); Albumin Level 3.9 gm/dl (3.4-5.0); BUN Creatinine Ratio 14.8 (10-20); Bilirubin,Total 0.6 mg/dl (0.2-1.0); Creatinine Clr Calc Pharmacy 109.6 ml/min; Est GFR (African American) 84.8 ml/min; Est GFR (Non-African American) 73.2 ml/min; Potassium 4.4 mmol/L (3.5-5.1); Total Protein 6.9 gm/dl (6.0-8.3); Troponin I High Sensitivity 10.6 pg/ml (0-20)
[2021-10-02 14:56] LABS: Partial Thromboplastin Ratio 0.9; Partial Thromboplastin Time 25.4 Seconds (21.0-31.0); Prothrombin Time 10.9 Seconds (9.0-12.0)
[2021-10-02] MEDS ORDERED: FUROSEMIDE INJ 20 MG/2 ML VIAL IV ONE (15:25)
[2021-10-02] MEDS ORDERED: NITROGLYCERIN 2% OINTMENT 30GM TUBE EXT STA (15:25)
[2021-10-02 15:59] LABS: Appearance Urine Clear (Clear); Bacteria Urine Automated Negative (Negative); Bilirubin Urine Negative (Negative); Blood Urine Negative (Negative); Color Urine Yellow; Epithelial Cell Urine Auto 0-5 /lpf (0-5); Glucose Urine UA Negative (Negative); Ketones Urine Negative (Negative); Leukocyte Esterase Urine Trace (Negative); Nitrite Urine Negative (Negative); Protein Urine Negative (Negative); RBC Urine Automated 0-4 /hpf (0-4); Specific Gravity Urine 1.012 (1.000-1.030); Urobilinogen Urine Negative (Negative)
--- NOTE | 2021-10-02 16:53 | History & Physical Report ---
Date of Service October 02, 2021 Assessment & Plan (1) Acute and chronic respiratory failure with hypoxia: Plan: Suspect this is multifactorial including super morbid obesity, OHS/KENRICK, new atrial fibrillation, and possible mild acute CHF not yet defined Will admit to a monitored bed Start diuresis with Lasix at 40 mg every 12 hours, consider increase pending I's and O's, daily weights Check 2D echo as able (last done in 2013, EF was 65-70%, very limited study secondary to habitus) I did review chest x-ray personally, very limited study but does appear to have level of vascular congestion check TSH, fasting lipids, HgbA1c (2) New onset atrial fibrillation: Plan: Likely secondary to issues noted above, may also be a contributing cause Patient's heart rate currently in the low 100s, will start metoprolol 50 mg p.o. twice daily Check TSH. Electrolytes within normal limits, continue to follow I did discuss anticoagulation with the patient ([id number] is 2 based on currently available information) and he is agreeable, will start Eliquis 5 mg p.o. twice daily Will ask cardiology to evaluate for further recommendations (3) Morbid obesity: Plan: Discussed with patient as this is a reversible risk factors that he has ongoing chronic respiratory failure Also suggested that he may have KENRICK which is a causative factor, strongly suggested a sleep study after discharge. Can follow-up with primary care physician for this (4) History of right hip replacement: Plan: May be limiting motility. We will ask PT/OT to evaluate History of Present Illness Chief Complaint: SOB Primary Care Provider: Ronnie Metzger DO This is a 58-year-old male with past medical history of previous right hip replacement, asthma, previous cellulitis that presents today complaining of shortness of breath. Patient is a good historian. Patient tells me that he has had worsening SOB/MARC over the course of the past year. 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 He has noticed that he has been slowly more dyspneic on exertion, fighting is to stop to catch his breath even after mild exertion. He denies any chest pain but does note occasional palpitations. He especially notes that when he wakes up in the middle of the night they tend to resolve on their own. He has noted worsening lower extremity edema as well. He has some erythema which is from previous of cellulitis but this has not gotten worse. He denies any infectious symptoms such as fever or chills. As the patient's condition worsen, he went to see his primary care provider for the first time in a number of years. At that time, he was found to be in atrial fibrillation which she did not previously have a history of. He was sent to the emergency room for further evaluation. Here, he was found to be in atrial fibrillation with a rate in the low 100s. He was also hypoxic and is currently stable on 3 L nasal cannula. Patient is now being admitted for further treatment. Allergies Allergy/AdvReac Type Severity Reaction Status Date / Time cephalexin Allergy Intermediate HIVES WITH Verified 10/02/21 10:29 SHORTNESS OF BREATH Home Medications Medication Instructions Recorded Confirmed Type acetaminophen 500 mg tablet 500 mg PO Q6H PRN 10/02/21 10/02/21 History (Tylenol Extra Strength) clotrimazole 1 % topical cream 1 applic topical TID PRN fungal 10/02/21 10/02/21 Rx rash #45 grams doxycycline monohydrate 100 mg 100 mg PO BID #28 caps 10/02/21 10/02/21 Rx capsule Past Med/Surg History Medical History Morbid obesity Osteoarthritis Surgical History History of appendectomy AGE 4 History of colonoscopy History of right hip replacement Family History Sister Family history of diabetes mellitus Social History Smoking Status: Never smoker Second Hand Exposure: Yes (ON OCC); Hx Alcohol Use: Yes Alcohol type: beer Hx Substance Use: No Preferred Language: Macedonian Communication Ability: Effective Visual Impairment: No Limitations Hearing Ability: Normal Health Claims Examiner Required: No Beliefs That Will Affect Care: None marital status: Single Current Living Situation: Alone current occupational status: retired How many Children do You have: 0 Feels Safe at Home: Yes Childhood Exposure to Second-Hand Smoke: No caffeine: Yes (coffee) during the past year weight has: increased > 10 lbs Dental Care, Regularly: No Physical Activity Frequency: Does not Exercise Seatbelt Use: never Sunscreen Use: No Do you think of yourself as: straight/heterosexual Gender Identity: Male Assistive Devices: Glasses Review of Systems Constitutional: + weight gain and + problem reported; no fever, no chills, no weakness and no weight loss Eyes: as per Subjective / HPI Respiratory: + dyspnea and + dyspnea on exertion; no cough, no chest congestion, no hemoptysis, no pain on inspiration and no sputum production Cardiovascular: + dyspnea on exertion, + orthopnea, + palpitations and + edema; no chest pain, no chest pain with activity, no lightheadedness and no calf pain Gastrointestinal: no abdominal pain, no nausea, no vomiting, no constipation and no diarrhea/loose stools Musculoskeletal: no back pain, no neck pain, no joint pain, no stiffness and no myalgia Integumentary: no rash Neurologic: no gait abnormality, no unsteadiness, no falls and no generalized weakness Physical Exam Constitutional: + morbidly obese and cooperative; no acute distress Neck: trachea midline, no thyromegaly Respiratory: normal respiratory effort Auscultation: + diminished lung sounds and + rales (? bases); no crackles, no rhonchi and no wheezes limited due to habitus Cardiovascular: Rate/Rhythm: + tachycardic and + irregularly irregular Heart Sounds: normal S1 and normal S2 Extremities: + edema (1-2+) limited by habitus, could not see neck vessels Gastrointestinal (Abdomen): Inspection/Auscultation: abdomen normal to inspection Percussion/Palpation: abdomen soft; abdomen nontender, no guarding, abdomen not rigid and no hepatosplenomegaly Musculoskeletal: mild erythema b/l shins, suspect venous stasis. Skin: no rashes, warm and dry Results & Data Results & Data ([facility]) Vital Signs (Past 12 Hours) Vital Signs Temp Pulse Pulse Resp BP BP Pulse Ox 10/02/21 15:56 102 H 24 96 10/02/21 15:56 145/86 H 10/02/21 15:50 84 21 97 10/02/21 15:49 171/111 H 10/02/21 15:49 83 23 96 10/02/21 15:45 154/129 H 07/18/22 15:45 95 H 22 97 10/02/21 15:40 91 H 24 95 10/02/21 15:30 101 H 16 97 10/02/21 15:30 173/126 H 10/02/21 15:20 84 20 97 10/02/21 15:10 100 H 22 96 10/02/21 15:01 92 H 20 96 10/02/21 15:01 158/123 H 10/02/21 15:00 97 H 26 H 96 10/02/21 14:50 96 H 25 H 96 10/02/21 14:43 79 L 10/02/21 14:30 86 19 96 10/02/21 14:20 95 H 21 96 10/02/21 14:10 89 24 96 10/02/21 14:03 150/119 H 10/02/21 14:03 95 H 18 91 10/02/21 14:00 21 90 10/02/21 13:50 78 19 98 10/02/21 13:40 91 H 21 97 10/02/21 13:30 89 21 96 10/02/21 13:24 137/97 10/02/21 13:24 107 H 22 10/02/21 13:20 25 H 10/02/21 13:10 104 H 23 94 10/02/21 13:00 29 H 10/02/21 12:50 120 H 26 H 94 10/02/21 12:44 102 H 21 95 10/02/21 14:31 90 24 96 10/02/21 12:31 10/02/21 12:31 112 H 28 H 143/103 H 94 10/02/21 12:31 82 L 10/02/21 12:33 36.7 C 110 H 18 166/93 H 87 L O2 Del Method O2 Flow Rate 10/02/21 15:56 10/02/21 15:56 10/02/21 15:50 10/02/21 15:49 10/02/21 15:49 10/02/21 15:45 10/02/21 15:45 10/02/21 15:40 10/02/21 15:30 10/02/21 15:30 10/02/21 15:20 10/02/21 15:10 10/02/21 15:01 10/02/21 15:01 10/02/21 15:00 10/02/21 14:50 10/02/21 14:43 10/02/21 14:30 10/02/21 14:20 10/02/21 14:10 10/02/21 14:03 10/02/21 14:03 10/02/21 14:00 10/02/21 13:50 10/02/21 13:40 10/02/21 13:30 10/02/21 13:24 10/02/21 13:24 10/02/21 13:20 10/02/21 13:10 10/02/21 13:00 10/02/21 12:50 10/02/21 12:44 10/02/21 14:31 Nasal Cannula 3 10/02/21 12:31 Nasal Cannula 3 10/02/21 12:31 Nasal Cannula 3 10/02/21 12:31 Room Air, Nasal Cannula 0 10/02/21 12:33 Room Air Laboratory Results Laboratory Results WBC 6.71 K/ul (4.8-10.8) 10/02/21 13:40 RBC 4.95 M/uL (4.63-6.08) 10/02/21 13:40 Hgb 14.7 g/dl (14.0-18.0) 10/02/21 13:40 Hct 45.8 % (40.1-51.0) 10/02/21 13:40 MCV 92.5 fL (80.0-100.0) 10/02/21 13:40 MCH 29.7 pg (25.0-34.0) 10/02/21 13:40 MCHC 32.1 g/dL (32.0-36.0) 10/02/21 13:40 RDW Std Deviation 46.7 fL (36.4-46.3) H 10/02/21 13:40 RDW Coeff of Walt 13.7 % (11.5-14.5) 10/02/21 13:40 Plt Count 170 K/uL (130-400) 10/02/21 13:40 MPV 10.3 fL (9.4-12.4) 10/02/21 13:40 Immature Gran % (Auto) 0.4 % 10/02/21 13:40 Neut % (Auto) 68.5 % 10/02/21 13:40 Lymph % (Auto) 15.5 % 10/02/21 13:40 [place] % (Auto) 11.0 % 10/02/21 13:40 Eos % (Auto) 3.9 % 10/02/21 13:40 Baso % (Auto) 0.7 % 10/02/21 13:40 Neut # (Auto) 4.59 K/uL (1.4-6.5) 10/02/21 13:40 Lymph # (Auto) 1.04 K/uL (1.2-3.4) L 10/02/21 13:40 [place] # (Auto) 0.74 K/uL (0.24-0.82) 10/02/21 13:40 Eos # (Auto) 0.26 K/uL (0-0.50) 10/02/21 13:40 Baso # (Auto) 0.05 K/uL (0-0.2) 10/02/21 13:40 Immature Gran # (Auto) 0.03 K/uL (0.00-0.02) H 10/02/21 13:40 PT 10.9 Seconds (9.0-12.0) 10/02/21 14:27 INR 1.0 (0.9-1.1) 10/02/21 14:27 APTT 25.4 Seconds (21.0-31.0) 10/02/21 14:27 PTT Ratio 0.9 10/02/21 14:27 Sodium 139 mmol/L (136-145) 10/02/21 13:40 Potassium 4.4 mmol/L (3.5-5.1) 10/02/21 13:40 Chloride 101 mmol/L (98-107) 10/02/21 13:40 Carbon Dioxide 32 mmol/L (21-32) 10/02/21 13:40 Anion Gap 6 (3-11) 10/02/21 13:40 BUN 16 mg/dl (6-23) 10/02/21 13:40 Creatinine 1.08 mg/dl (0.6-1.4) 10/02/21 13:40 Est Cr Clr Drug Dosing 109.6 ml/min 10/02/21 13:40 Est GFR ( Amer) 84.8 ml/min 10/02/21 13:40 Est GFR (Non-Af Amer) 73.2 ml/min 10/02/21 13:40 BUN/Creatinine Ratio 14.8 (10-20) 10/02/21 13:40 Glucose 107 mg/dl (70-99(Fasting)) H 10/02/21 13:40 Calcium 9.0 mg/dl (8.5-10.1) 10/02/21 13:40 Magnesium 2.0 mg/dl (1.7-2.4) 10/02/21 13:40 Total Bilirubin 0.6 mg/dl (0.2-1.0) 10/02/21 13:40 AST 20 U/L (13-39) 10/02/21 13:40 ALT 20 U/L (7-52) 10/02/21 13:40 Alkaline Phosphatase 42 U/L (34-104) 10/02/21 13:40 Troponin I High Sens 10.6 pg/ml (0-20) 10/02/21 13:40 B-Natriuretic Peptide 178 pg/ml (0-100) H 10/02/21 13:40 Total Protein 6.9 gm/dl (6.0-8.3) 10/02/21 13:40 Albumin 3.9 gm/dl (3.4-5.0) 10/02/21 13:40 Globulin 3.0 gm/dl (2.5-4.0) 10/02/21 13:40 Albumin/Globulin Ratio 1.3 (0.9-2) 10/02/21 13:40 TSH 1.052 uIu/ml (0.300-4.500) 10/02/21 14:27 Urine Color Yellow 10/02/21 14:45 Urine Appearance Clear (Clear) 10/02/21 14:45 Urine pH 6.0 (4.5-7.5) 10/02/21 14:45 Ur Specific [place] 1.012 (1.000-1.030) 10/02/21 14:45 Urine Protein Negative (Negative) 10/02/21 14:45 Urine Glucose (UA) Negative (Negative) 10/02/21 14:45 Urine Ketones Negative (Negative) 10/02/21 14:45 Urine Blood Negative (Negative) 10/02/21 14:45 Urine Nitrite Negative (Negative) 10/02/21 14:45 Urine Bilirubin Negative (Negative) 10/02/21 14:45 Urine Urobilinogen Negative (Negative) 10/02/21 14:45 Ur Leukocyte Esterase Trace (Negative) H 10/02/21 14:45 Urine WBC (Auto) 1-5 /hpf (0-5) 10/02/21 14:45 Urine RBC (Auto) 0-4 /hpf (0-4) 10/02/21 14:45 U Hyaline Cast (Auto) 1-5 /lpf (0-5) 10/02/21 14:45 U Epithel Cells (Auto) 0-5 /lpf (0-5) 10/02/21 14:45 Urine Bacteria (Auto) Negative (Negative) 10/02/21 14:45 SARS-CoV-2, RNA, NAAT NEGATIVE (NEGATIVE) 10/02/21 13:35 Impressions Chest X-Ray 10/02/21 12:44 SINGLE VIEW CHEST CLINICAL HISTORY: Preoperative examination. FINDINGS: An AP, portable, upright chest radiograph is compared to study dated 03/24/2018. The examination is degraded by portable technique, large body habitus, and apical lordotic positioning. The heart is enlarged. There is pulmonary vascular congestion. There is elevation of the right hemidiaphragm with bibasilar atelectasis. Question small pleural effusions. No pneumothorax is seen. The bony thorax is grossly intact. IMPRESSION: 1. Cardiomegaly with pulmonary vascular congestion. 2. Question small pleural effusions. ACT 112: Negative or not required by law. Electronically signed by: Jayce Antoine M.D. 10/02/2021 1:10 PM PG Care Time/CCT Total # of Minutes Spent Total Time Spent with Patient: Total time spent is greater than 50% in coordination of care (as documented) at patient's floor/unit and/or counseling patient: Coding Level of Care Code 04814 Initial Inpt Care Lvl 3 Diagnoses Acute and chronic respiratory failure with hypoxia J96.21 New onset atrial fibrillation I48.91 Morbid obesity E66.01 History of right hip replacement Z96.641
[2021-10-02] MEDS ORDERED: ONDANSETRON INJ 2 MG/ML 2 ML VIAL IV PRN (18:25)
[2021-10-02] MEDS ORDERED: ACETAMINOPHEN 325 MG TAB PO PRN (18:25)
[2021-10-02] MEDS: METOPROLOL TARTRATE 50 MG TAB PO SCH (19:51)
[2021-10-02] MEDS: APIXABAN 5 MG TABLET PO SCH (19:52)
[2021-10-02] MEDS: FUROSEMIDE INJ 20 MG/2 ML VIAL IV SCH (19:55)
[2021-10-03 06:22] LABS: Basophils # (auto) 0.05 K/uL (0-0.2); Basophils % (auto) 0.7 %; Eosinophils # (auto) 0.24 K/uL (0-0.50); Eosinophils % (auto) 3.3 %; Hematocrit (blood only) 50.4 % (40.1-51.0); Hemoglobin 15.9 g/dl (14.0-18.0); Immature Granulocytes # (auto) 0.03 K/uL (0.00-0.02); Immature Granulocytes % (auto) 0.4 %; Lymphocytes # (auto) 1.06 K/uL (1.2-3.4); Lymphocytes % (auto) 14.8 %; Mean Corpuscular Hemoglobin 29.6 pg (25.0-34.0); Mean Corpuscular Hgb Conc 31.5 g/dL (32.0-36.0); Mean Corpuscular Volume 93.7 fL (80.0-100.0); Mean Platelet Volume 9.9 fL (9.4-12.4); Monocytes # (auto) 0.66 K/uL (0.24-0.82); Monocytes % (auto) 9.2 %; Neutrophils # (auto) 5.14 K/uL (1.4-6.5); Neutrophils % (auto) 71.6 %; Platelet Count 148 K/uL (130-400); RDW Coefficient of Variation 13.5 % (11.5-14.5); RDW Standard Deviation 46.7 fL (36.4-46.3); Red Blood Count 5.38 M/uL (4.63-6.08); White Blood Count 7.18 K/ul (4.8-10.8)
[2021-10-03 06:49] LABS: BUN Creatinine Ratio 13.9 (10-20); Calcium 9.1 mg/dl (8.5-10.1); Chol HDL Ratio 3.8 (0-5); Creatinine Clr Calc Pharmacy 121.6 ml/min; Est GFR (African American) 78.6 ml/min; Est GFR (Non-African American) 67.8 ml/min; Potassium 4.6 mmol/L (3.5-5.1)
[2021-10-03 07:39] LABS: Estimated Average Glucose 128 mg/dl; Hemoglobin A1C 6.1 % (4.5-5.6)
--- NOTE | 2021-10-03 08:09 | Hospitalist Progress Note ---
Date of Service October 03, 2021 Assessment & Plan (1) Acute and chronic respiratory failure with hypoxia: (2) New onset atrial fibrillation: (3) Morbid obesity: (4) History of right hip replacement: Plan Ms. Guerrero is a 58 y/o gentleman with a PMHx of right THR, asthma, and previous cellulitis that presents today complaining of SOB. Patient notes having worsening SOB/MARC over the last year. He retired around 4 years ago and notes that he has gained a significant amount of weight since stopping work.He has noticed that he has been slowly more dyspneic on exertion, with stopping to catch his breath even after mild exertion.He denies any chest pain but does note occasional palpitations.He especially notes that when he wakes up in the middle of the night they tend to resolve on their own.He has noted worsening lower extremity edema as well.He has some erythema which is from previous of cellulitis but this has not gotten worse.He denies any infectious symptoms such as fever or chills. As the patient's condition worsened, he went to see his primary care provider for the first time in a number of years. At that time, he was found to be in atrial fibrillation which he did not previously have a history of. He was sent to the emergency room for further evaluation. Here, he was found to be in atrial fibrillation with a rate in the low 100s. He was also hypoxic at that time. Currently stable on 3 L nasal cannula. #Acute and chronic hypoxia Suspect this is multifactorial including morbid obesity, OHS/KENRICK, new atrial fibrillation, and possible mild acute CHF not yet defined. Started diuresis with Lasix at 40 mg every 12 hours, consider increase pending I's and O's, daily weights. CXR showed some level of vascular congestion. Check 2D echo - unchanged from previous study, EF 55-60%, limited due to habitus. TSH - 1.052. HgbA1c - 6.1. Lipids - TRG - 95, Total 177, LDL 112, VLDL 19, HDL 46. [] Lasix 40 mg BID [] Strict Is and Os [] Daily weights [] salt, fluid restriction #New onset a. fib Likely secondary to issues noted above, may also be a contributing cause. Patient's heart rate 67 on metoprolol. [] Eliquis 5 mg BID [] continue metoprolol 50 mg PO BID [] TSH 1.052 [] AM BMP #Morbid obesity Discussed with patient as this is a reversible risk factors that he has ongoing chronic respiratory failure Also suggested that he may have KENRICK which is a causative factor - overnight pulse ox, AM ABG [] overnight pulse ox, AM ABG to evaluate for hypoxia #hx of R THR May be limiting motility. We will ask PT/OT to evaluate [] PT/OT - rec d/c home when medically stable Admission and Anticipated Discharge Date Admission Date: October 02, 2021 Supervising Physician Co-Signing Physician Notes I personally examined the patient and verified all martinez points of history and exam, discussed case, and agree with decision making with Dr Marcial. Feeling better wondering about going home. Tired all the time at home. Notes dyspnea on exertion acutely has improved some. Extensive discussion with patient and family on working diagnoses and overall plan. Vitals noted, in general he is awake and alert pleasant no distress. HEENT normocephalic atraumatic mucous membranes moist. Breathing unlabored no accessory muscle use good effort. Skin shows no rashes no pallor or icterus. Dyspnea on exertionlikely due to new onset A. fib/rate related dyspnea as well as acute diastolic CHF from uncontrolled ratesand also superimposed dyspnea from presumably OHS. Diuresis, rate control, supplemental oxygen as needed. Overnight pulse ox and a.m. blood gasif this fails to reveal true OHS, then he will need a sleep study. I suspect he has sleep apnea driving the A. fib. Morbid obesity with BMI of 64.5 driving almost all of his current morbiditiesstarted to discuss lifestyle change as well. Otherwise as above Subjective The patient notes that he is doing well. He feels that his breathing has improved. The patient notes some continued SOB, but otherwise no complaints. Review of Systems Review of Systems: See subjective/HPI. Physical Exam Constitutional: + morbidly obese and cooperative; no acute distress Neck: trachea midline, no thyromegaly Respiratory: normal respiratory effort Auscultation: + diminished lung sounds and + rales (? bases); no crackles, no rhonchi and no wheezes Cardiovascular: Extremities: + edema (1-2+) Diminished heart sounds Gastrointestinal (Abdomen): Inspection/Auscultation: abdomen normal to inspection Percussion/Palpation: abdomen soft; abdomen nontender, no guarding, abdomen not rigid and no hepatosplenomegaly Skin: no rashes, warm and dry Results & Data Results & Data ([facility]) Vital Signs (Past 12 Hours) Vital Signs Temp Pulse Pulse Resp BP Pulse Ox O2 Del Method 10/03/21 04:16 37.2 C 74 18 153/118 H 96 Nasal Cannula 10/02/21 22:30 81 10/02/21 22:33 Nasal Cannula O2 Flow Rate 10/03/21 04:16 3 10/02/21 22:30 10/02/21 22:33 3 Laboratory Results 10/03/21 10/03/21 10/03/21 Range/Units 06:03 06:03 06:03 WBC 7.18 (4.8-10.8) K/ul RBC 5.38 (4.63-6.08) M/uL Hgb 15.9 (14.0-18.0) g/dl Hct 50.4 (40.1-51.0) % MCV 93.7 (80.0-100.0) fL MCH 29.6 (25.0-34.0) pg MCHC 31.5 L (32.0-36.0) g/dL RDW Std Deviation 46.7 H (36.4-46.3) fL RDW Coeff of Walt 13.5 (11.5-14.5) % Plt Count 148 (130-400) K/uL MPV 9.9 (9.4-12.4) fL Immature Gran % (Auto) 0.4 % Neut % (Auto) 71.6 % Lymph % (Auto) 14.8 % Alfalfa % (Auto) 9.2 % Eos % (Auto) 3.3 % Baso % (Auto) 0.7 % Neut # (Auto) 5.14 (1.4-6.5) K/uL Lymph # (Auto) 1.06 L (1.2-3.4) K/uL Alfalfa # (Auto) 0.66 (0.24-0.82) K/uL Eos # (Auto) 0.24 (0-0.50) K/uL Baso # (Auto) 0.05 (0-0.2) K/uL Immature Gran # (Auto) 0.03 H (0.00-0.02) K/uL PT INR APTT PTT Ratio Sodium 138 Potassium 4.6 Chloride 97 L Carbon Dioxide 37 H Anion Gap 4 BUN 16 Creatinine 1.15 Est Cr Clr Drug Dosing 121.6 Est GFR ( Amer) 78.6 Est GFR (Non-Af Amer) 67.8 BUN/Creatinine Ratio 13.9 Glucose 98 Estimat Average Glucose 128 mg/dl Hemoglobin A1c 6.1 H (4.5-5.6) % Calcium 9.1 Magnesium 2.0 Total Bilirubin AST ALT Alkaline Phosphatase Troponin I High Sens B-Natriuretic Peptide (0-100) pg/ml Total Protein Albumin Globulin Albumin/Globulin Ratio Triglycerides 95 (0-150) mg/dl Cholesterol 177 (0-200) mg/dl LDL Cholesterol, Calc 112 mg/dl VLDL Cholesterol, Calc 19 (0-30) mg/dl HDL Cholesterol 46 mg/dl Cholesterol/HDL Ratio 3.8 (0-5) TSH Urine Color Urine Appearance (Clear) Urine pH (4.5-7.5) Ur Specific [place] (1.000-1.030) Urine Protein (Negative) Urine Glucose (UA) (Negative) Urine Ketones (Negative) Urine Blood (Negative) Urine Nitrite (Negative) Urine Bilirubin (Negative) Urine Urobilinogen (Negative) Ur Leukocyte Esterase (Negative) Urine WBC (Auto) (0-5) /hpf Urine RBC (Auto) (0-4) /hpf U Hyaline Cast (Auto) (0-5) /lpf U Epithel Cells (Auto) (0-5) /lpf Urine Bacteria (Auto) (Negative) SARS-CoV-2, RNA, NAAT (NEGATIVE) 10/02/21 10/02/21 10/02/21 Range/Units 14:45 14:27 14:27 WBC (4.8-10.8) K/ul RBC (4.63-6.08) M/uL Hgb (14.0-18.0) g/dl Hct (40.1-51.0) % MCV (80.0-100.0) fL MCH (25.0-34.0) pg MCHC (32.0-36.0) g/dL RDW Std Deviation (36.4-46.3) fL RDW Coeff of Walt (11.5-14.5) % Plt Count (130-400) K/uL MPV (9.4-12.4) fL Immature Gran % (Auto) % Neut % (Auto) % Lymph % (Auto) % Alfalfa % (Auto) % Eos % (Auto) % Baso % (Auto) % Neut # (Auto) (1.4-6.5) K/uL Lymph # (Auto) (1.2-3.4) K/uL Alfalfa # (Auto) (0.24-0.82) K/uL Eos # (Auto) (0-0.50) K/uL Baso # (Auto) (0-0.2) K/uL Immature Gran # (Auto) (0.00-0.02) K/uL PT 10.9 INR 1.0 APTT 25.4 PTT Ratio 0.9 Sodium Potassium Chloride Carbon Dioxide Anion Gap BUN Creatinine Est Cr Clr Drug Dosing Est GFR ( Amer) Est GFR (Non-Af Amer) BUN/Creatinine Ratio Glucose Estimat Average Glucose mg/dl Hemoglobin A1c (4.5-5.6) % Calcium Magnesium Total Bilirubin AST ALT Alkaline Phosphatase Troponin I High Sens B-Natriuretic Peptide (0-100) pg/ml Total Protein Albumin Globulin Albumin/Globulin Ratio Triglycerides (0-150) mg/dl Cholesterol (0-200) mg/dl LDL Cholesterol, Calc mg/dl VLDL Cholesterol, Calc (0-30) mg/dl HDL Cholesterol mg/dl Cholesterol/HDL Ratio (0-5) TSH 1.052 Urine Color Yellow Urine Appearance Clear (Clear) Urine pH 6.0 (4.5-7.5) Ur Specific [place] 1.012 (1.000-1.030) Urine Protein Negative (Negative) Urine Glucose (UA) Negative (Negative) Urine Ketones Negative (Negative) Urine Blood Negative (Negative) Urine Nitrite Negative (Negative) Urine Bilirubin Negative (Negative) Urine Urobilinogen Negative (Negative) Ur Leukocyte Esterase Trace H (Negative) Urine WBC (Auto) 1-5 (0-5) /hpf Urine RBC (Auto) 0-4 (0-4) /hpf U Hyaline Cast (Auto) 1-5 (0-5) /lpf U Epithel Cells (Auto) 0-5 (0-5) /lpf Urine Bacteria (Auto) Negative (Negative) SARS-CoV-2, RNA, NAAT (NEGATIVE) 10/02/21 10/02/21 10/02/21 Range/Units 13:40 13:40 13:40 WBC 6.71 (4.8-10.8) K/ul RBC 4.95 (4.63-6.08) M/uL Hgb 14.7 (14.0-18.0) g/dl Hct 45.8 (40.1-51.0) % MCV 92.5 (80.0-100.0) fL MCH 29.7 (25.0-34.0) pg MCHC 32.1 (32.0-36.0) g/dL RDW Std Deviation 46.7 H (36.4-46.3) fL RDW Coeff of Walt 13.7 (11.5-14.5) % Plt Count 170 (130-400) K/uL MPV 10.3 (9.4-12.4) fL Immature Gran % (Auto) 0.4 % Neut % (Auto) 68.5 % Lymph % (Auto) 15.5 % Alfalfa % (Auto) 11.0 % Eos % (Auto) 3.9 % Baso % (Auto) 0.7 % Neut # (Auto) 4.59 (1.4-6.5) K/uL Lymph # (Auto) 1.04 L (1.2-3.4) K/uL Alfalfa # (Auto) 0.74 (0.24-0.82) K/uL Eos # (Auto) 0.26 (0-0.50) K/uL Baso # (Auto) 0.05 (0-0.2) K/uL Immature Gran # (Auto) 0.03 H (0.00-0.02) K/uL PT INR APTT PTT Ratio Sodium 139 Potassium 4.4 Chloride 101 Carbon Dioxide 32 Anion Gap 6 BUN 16 Creatinine 1.08 Est Cr Clr Drug Dosing 109.6 Est GFR ( Amer) 84.8 Est GFR (Non-Af Amer) 73.2 BUN/Creatinine Ratio 14.8 Glucose 107 H Estimat Average Glucose mg/dl Hemoglobin A1c (4.5-5.6) % Calcium 9.0 Magnesium 2.0 Total Bilirubin 0.6 AST 20 ALT 20 Alkaline Phosphatase 42 Troponin I High Sens 10.6 B-Natriuretic Peptide 178 H (0-100) pg/ml Total Protein 6.9 Albumin 3.9 Globulin 3.0 Albumin/Globulin Ratio 1.3 Triglycerides (0-150) mg/dl Cholesterol (0-200) mg/dl LDL Cholesterol, Calc mg/dl VLDL Cholesterol, Calc (0-30) mg/dl HDL Cholesterol mg/dl Cholesterol/HDL Ratio (0-5) TSH Urine Color Urine Appearance (Clear) Urine pH (4.5-7.5) Ur Specific [place] (1.000-1.030) Urine Protein (Negative) Urine Glucose (UA) (Negative) Urine Ketones (Negative) Urine Blood (Negative) Urine Nitrite (Negative) Urine Bilirubin (Negative) Urine Urobilinogen (Negative) Ur Leukocyte Esterase (Negative) Urine WBC (Auto) (0-5) /hpf Urine RBC (Auto) (0-4) /hpf U Hyaline Cast (Auto) (0-5) /lpf U Epithel Cells (Auto) (0-5) /lpf Urine Bacteria (Auto) (Negative) SARS-CoV-2, RNA, NAAT (NEGATIVE) 10/02/21 10/02/21 10/02/21 Range/Units 13:35 12:55 12:55 WBC (4.8-10.8) K/ul RBC (4.63-6.08) M/uL Hgb (14.0-18.0) g/dl Hct (40.1-51.0) % MCV (80.0-100.0) fL MCH (25.0-34.0) pg MCHC (32.0-36.0) g/dL RDW Std Deviation (36.4-46.3) fL RDW Coeff of Walt (11.5-14.5) % Plt Count (130-400) K/uL MPV (9.4-12.4) fL Immature Gran % (Auto) % Neut % (Auto) % Lymph % (Auto) % Alfalfa % (Auto) % Eos % (Auto) % Baso % (Auto) % Neut # (Auto) (1.4-6.5) K/uL Lymph # (Auto) (1.2-3.4) K/uL Alfalfa # (Auto) (0.24-0.82) K/uL Eos # (Auto) (0-0.50) K/uL Baso # (Auto) (0-0.2) K/uL Immature Gran # (Auto) (0.00-0.02) K/uL PT INR APTT PTT Ratio Sodium Cancelled Potassium Cancelled Chloride Cancelled Carbon Dioxide Cancelled Anion Gap Cancelled BUN Cancelled Creatinine Cancelled Est Cr Clr Drug Dosing Cancelled Est GFR ( Amer) Cancelled Est GFR (Non-Af Amer) Cancelled BUN/Creatinine Ratio Cancelled Glucose Cancelled Estimat Average Glucose mg/dl Hemoglobin A1c (4.5-5.6) % Calcium Cancelled Magnesium Cancelled Total Bilirubin Cancelled AST Cancelled ALT Cancelled Alkaline Phosphatase Cancelled Troponin I High Sens Cancelled B-Natriuretic Peptide (0-100) pg/ml Total Protein Cancelled Albumin Cancelled Globulin Cancelled Albumin/Globulin Ratio Cancelled Triglycerides (0-150) mg/dl Cholesterol (0-200) mg/dl LDL Cholesterol, Calc mg/dl VLDL Cholesterol, Calc (0-30) mg/dl HDL Cholesterol mg/dl Cholesterol/HDL Ratio (0-5) TSH Cancelled Urine Color Urine Appearance (Clear) Urine pH (4.5-7.5) Ur Specific [place] (1.000-1.030) Urine Protein (Negative) Urine Glucose (UA) (Negative) Urine Ketones (Negative) Urine Blood (Negative) Urine Nitrite (Negative) Urine Bilirubin (Negative) Urine Urobilinogen (Negative) Ur Leukocyte Esterase (Negative) Urine WBC (Auto) (0-5) /hpf Urine RBC (Auto) (0-4) /hpf U Hyaline Cast (Auto) (0-5) /lpf U Epithel Cells (Auto) (0-5) /lpf Urine Bacteria (Auto) (Negative) SARS-CoV-2, RNA, NAAT NEGATIVE (NEGATIVE) 10/02/21 Range/Units 12:55 WBC (4.8-10.8) K/ul RBC (4.63-6.08) M/uL Hgb (14.0-18.0) g/dl Hct (40.1-51.0) % MCV (80.0-100.0) fL MCH (25.0-34.0) pg MCHC (32.0-36.0) g/dL RDW Std Deviation (36.4-46.3) fL RDW Coeff of Walt (11.5-14.5) % Plt Count (130-400) K/uL MPV (9.4-12.4) fL Immature Gran % (Auto) % Neut % (Auto) % Lymph % (Auto) % Alfalfa % (Auto) % Eos % (Auto) % Baso % (Auto) % Neut # (Auto) (1.4-6.5) K/uL Lymph # (Auto) (1.2-3.4) K/uL Alfalfa # (Auto) (0.24-0.82) K/uL Eos # (Auto) (0-0.50) K/uL Baso # (Auto) (0-0.2) K/uL Immature Gran # (Auto) (0.00-0.02) K/uL PT Cancelled INR Cancelled APTT Cancelled PTT Ratio Cancelled Sodium Potassium Chloride Carbon Dioxide Anion Gap BUN Creatinine Est Cr Clr Drug Dosing Est GFR ( Amer) Est GFR (Non-Af Amer) BUN/Creatinine Ratio Glucose Estimat Average Glucose mg/dl Hemoglobin A1c (4.5-5.6) % Calcium Magnesium Total Bilirubin AST ALT Alkaline Phosphatase Troponin I High Sens B-Natriuretic Peptide (0-100) pg/ml Total Protein Albumin Globulin Albumin/Globulin Ratio Triglycerides (0-150) mg/dl Cholesterol (0-200) mg/dl LDL Cholesterol, Calc mg/dl VLDL Cholesterol, Calc (0-30) mg/dl HDL Cholesterol mg/dl Cholesterol/HDL Ratio (0-5) TSH Urine Color Urine Appearance (Clear) Urine pH (4.5-7.5) Ur Specific [place] (1.000-1.030) Urine Protein (Negative) Urine Glucose (UA) (Negative) Urine Ketones (Negative) Urine Blood (Negative) Urine Nitrite (Negative) Urine Bilirubin (Negative) Urine Urobilinogen (Negative) Ur Leukocyte Esterase (Negative) Urine WBC (Auto) (0-5) /hpf Urine RBC (Auto) (0-4) /hpf U Hyaline Cast (Auto) (0-5) /lpf U Epithel Cells (Auto) (0-5) /lpf Urine Bacteria (Auto) (Negative) SARS-CoV-2, RNA, NAAT (NEGATIVE) Diagnostic Findings ECHO 10/03 Left ventricular systolic function is normal. No regional wall motion abnormalities noted. There is mild concentric left ventricular hypertrophy EJ 55-60% There is mild mitral regurgitation Compared with study of 12/21/13, no significant change CXR 10/02 FINDINGS: An AP, portable, upright chest radiograph is compared to study dated 03/24/2018. The examination is degraded by portable technique, large body habitus, and apical lordotic positioning. The heart is enlarged. There is pulmonary vascular congestion. There is elevation of the right hemidiaphragm with bibasilar atelectasis. Question small pleural effusions. No pneumothorax is seen. The bony thorax is grossly intact. IMPRESSION: 1. Cardiomegaly with pulmonary vascular congestion. 2. Question small pleural effusions. ECG Additional Comments: Atrial fibrillation Left anterior fascicular block Resident Activity Tracking Resident Involvement: Resident Care Provided Care Provided: Adult Hospital Medicine
[2021-10-03] MEDS: METOPROLOL TARTRATE 50 MG TAB PO SCH ×2 (08:38→20:58)
[2021-10-03] MEDS: FUROSEMIDE INJ 20 MG/2 ML VIAL IV SCH ×2 (08:42→20:59)
[2021-10-03] MEDS: APIXABAN 5 MG TABLET PO SCH ×2 (08:42→20:58)
--- NOTE | 2021-10-03 11:05 | Cardiology Consultation ---
Date of Consultation October 03, 2021 Assessment & Plan (1) New onset atrial fibrillation: -uncertain time of onset. -rate now adequately controlled with metoprolol tartrate 50 mg b.i.d. -tolerating Eliquis 5 mg b.i.d. -preliminary review of echocardiogram notes normal left ventricular sy stolic function. -dysrhythmia may have predisposed him to fluid retention. -agree with Lasix 40 mg IV b.i.d. as his oxygen saturation is marginal on room air. (2) Hypertension: -hopefully his BP readings will improve on metoprolol tartrate. (3) LVH (left ventricular hypertrophy): -mild LVH on current echocardiogram. History of Present Illness Attending Physician: Jaspal Newell, History of Present Illness Mr. Guerrero is a 60-year-old male admitted yesterday with new onset atrial fibrillation and a rapid ventricular response. This consultation was ordered to assist in his cardiac management. The patient was seen on the day of admission by Dr. Metzger as a new patient evaluation. The patient had been complaining of slowly progressive exertional dyspnea over the prior 6-12 months. He was also noticing occasional nocturnal palpitations. An EKG was obtained which revealed atrial fibrillation and a rapid ventricular response. The patient was sent to the emergency room for further care. On arrival here, the patient was still in atrial fibrillation. His initial chest x-ray was of poor quality, but suggested some interstitial edema. His BNP was mildly elevated 178. He was started on intravenous diuretics and given metoprolol tartrate. He was also started on Eliquis due to his elevated CHADSVasc score. The patient has never known of the diagnosis of atrial fibrillation. He has never had a cardiac event or cardiac catheterization. The patient has never experienced exertional chest pain. He further denies syncope, presyncope, PND, orthopnea, changes lower extremity edema, and claudication. Currently, patient is resting comfortably in bedside chair without complaints of chest pain, dyspnea, or palpitations. Past medical and surgical history 1. Hypertension 2. Mild LVH 3. Asthma 4. Hyperglycemia 5. Morbid obesity 6. Appendectomy-1965 7. 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 Father at 42 from a brain tumor His sister 68 with ovarian cancer Review of systems A 10 review systems was undertaken and negative except that described above. Allergies Allergy/AdvReac Type Severity Reaction Status Date / Time cephalexin Allergy Intermediate HIVES WITH Verified 10/02/21 17:15 SHORTNESS OF BREATH Home Medications Medication Instructions Recorded Confirmed Type No Known Home Medications 10/02/21 10/02/21 History Patient History Medical History Morbid obesity Osteoarthritis Surgical History History of appendectomy AGE 4 History of colonoscopy History of right hip replacement Family History Sister Family history of diabetes mellitus Social History Smoking Status: Never smoker Second Hand Exposure: Yes (ON OCC); Hx Alcohol Use: Yes Alcohol type: beer Hx Substance Use: No Preferred Language: Togolese Communication Ability: Effective Visual Impairment: No Limitations Hearing Ability: Normal Firefighting Equipment Specialist Required: No Beliefs That Will Affect Care: None marital status: Single Current Living Situation: Alone current occupational status: retired How many Children do You have: 0 Other Information That Helps Us Care for You: No Feels Safe at Home: Yes Safety Concerns: Feels Safe At This Time Childhood Exposure to Second-Hand Smoke: No caffeine: Yes (coffee) during the past year weight has: increased > 10 lbs Dental Care, Regularly: No Physical Activity Frequency: Does not Exercise Seatbelt Use: never Sunscreen Use: No Do you think of yourself as: straight/heterosexual Gender Identity: Male Assistive Devices: Glasses Physical Exam Physical Exam: In general this is a morbidly obese white male in no acute distress. HEENT exam is negative. Neck is supple with full carotid upstrokes. There are no carotid bruits. Jugular venous pressure is flat at 90. There is no thyromegaly. Cardiovascular exam reveals an irregularly irregular rhythm with distant heart sounds. No obvious murmurs. Lungs are clear without rales, rhonchi or wheezes. Abdomen is obese. Extremities reveal intact radial artery pulses bilaterally. 1+ pretibial edema is noted. Feet and lower tibial regions erythematous but not warm to the touch. Results & Data ([facility]) Vital Signs (Past 12 Hours) Vital Signs Temp Pulse Pulse Resp BP BP Pulse Ox 10/03/21 09:37 10/03/21 06:00 74 10/03/21 08:00 36.5 C 75 20 154/84 H 96 10/03/21 04:16 37.2 C 74 18 153/118 H 96 O2 Del Method O2 Flow Rate 10/03/21 09:37 Room Air 10/03/21 06:00 10/03/21 08:00 Nasal Cannula 3 10/03/21 04:16 Nasal Cannula 3 Laboratory Results CBC notes hemoglobin 15.9, hematocrit 50.4, white count 7.2, and platelet count 148 1000. Electrolytes note a sodium 130, potassium 4.6, chloride 97, bicarb 37, BUN 16, creatinine 1.15, and glucose of 98. Magnesium level is normal at 2.0. Hemoglobin A1c is elevated at 6.1. High sensitivity troponin is normal at 10.6. BNP mildly elevated 178 (0-100). TSH is normal 1.05. Diagnostic Findings Preliminary review of echocardiogram at the bedside notes normal systolic function without wall motion abnormalities. There was mild LVH. Full report to follow. EKG notes atrial fibrillation with a ventricular response in the mid to upper 90s. There is a left anterior hemiblock and nonspecific T-wave abnormality. Chest x-ray is of poor quality but notes cardiomegaly. PG Care Time/CCT Total # of Minutes Spent Total Time Spent with Patient: Total time spent is greater than 50% in coordination of care (as documented) at patient's floor/unit and/or counseling patient: Coding Level of Care Code 95294 Inpt Consult Level 4 Diagnoses New onset atrial fibrillation I48.91 Hypertension I10 LVH (left ventricular hypertrophy) I51.7
--- NOTE | 2021-10-03 16:33 | XCELERA ---
[id number]
--- NOTE | 2021-10-03 16:56 | Electrocardiogram Report ---
Test Reason : Blood Pressure : / mmHG Vent. Rate : 095 BPM Atrial Rate : 197 BPM P-R Int : 000 ms QRS Dur : 118 ms QT Int : 364 ms P-R-T Axes : 000 -70 069 degrees QTc Int : 457 ms Atrial fibrillation Left anterior fascicular block Nonspecific T wave abnormality Abnormal ECG When compared with ECG of 24-MAR-2018 09:32, Atrial fibrillation has replaced Sinus rhythm Vent. rate has increased BY 35 BPM Left anterior fascicular block is now Present Nonspecific T wave abnormality now evident in Anterior leads Confirmed by Mian Sanchez ([id number]) on 10/03/2021 4:56:20 PM Referred By: REFERRED SELF Confirmed By:Mian Sanchez
--- NOTE | 2021-10-03 16:57 | Billing Data ---
Date of Service October 03, 2021 Coding Level of Care Code 44189 Subseq Hosp Care Lvl 3
--- NOTE | 2021-10-03 17:03 | Electrocardiogram Report ---
Test Reason : Blood Pressure : / mmHG Vent. Rate : 094 BPM Atrial Rate : 094 BPM P-R Int : 000 ms QRS Dur : 112 ms QT Int : 378 ms P-R-T Axes : 000 -73 039 degrees QTc Int : 472 ms Atrial fibrillation Left anterior fascicular block Abnormal ECG When compared with ECG of 02-OCT-2021 12:47, (unconfirmed) No significant change was found Confirmed by Mian Sanchez ([id number]) on 10/03/2021 5:03:12 PM Referred By: REFERRED SELF Confirmed By:Mian Sanchez
[2021-10-04 05:54] LABS: Base Excess ABG 17.9 mEq/L (-9-1.8); HCO3 ABG 47 mmol/L (19-24); Oxygen Saturation ABG 92.6 % (90-95); PCO2 ABG 78 mmHg (35-46); PO2 ABG 65 mmHg (80-95); pH ABG 7.39 (7.35-7.45)
[2021-10-04 05:55] LABS: Allen Test Pos (Pos)
[2021-10-04 06:17] LABS: Calcium 7.9 mg/dl (8.5-10.1); Creatinine Clr Calc Pharmacy 128.9 ml/min; Est GFR (African American) 85.8 ml/min; Potassium 3.8 mmol/L (3.5-5.1)
--- NOTE | 2021-10-04 06:57 | Hospitalist Progress Note ---
Date of Service October 04, 2021 Assessment & Plan (1) Acute and chronic respiratory failure with hypoxia: (2) New onset atrial fibrillation: (3) Morbid obesity: (4) History of right hip replacement: (5) Obesity hypoventilation syndrome: Plan Plan Ms. Guerrero is a 58 y/o gentleman with a PMHx of right THR, asthma, and previous cellulitis that presented with SOB now clinically improved and ready for discharge - waiting on approval for Trilogy. Patient notes having worsening SOB/MARC over the last year. He retired around 4 years ago and notes that he has gained a significant amount of weight since stopping work.He has noticed that he has been slowly more dyspneic on exertion, with stopping to catch his breath even after mild exertion.He denies any chest pain but does note occasional palpitations.He especially notes that when he wakes up in the middle of the night they tend to resolve on their own.He has noted worsening lower extremity edema as well.He has some erythema which is from previous of cellulitis but this has not gotten worse.He denies any i nfectious symptoms such as fever or chills. As the patient's condition worsened, he went to see his primary care provider for the first time in a number of years. At that time, he was found to be in atrial fibrillation which he did not previously have a history of. He was sent to the emergency room for further evaluation. Here, he was found to be in atrial fibrillation with a rate in the low 100s. He was also hypoxic at that time. Currently stable on 3 L nasal cannula. #Obesity Hypoventilation Syndrome #Morbid obesity Discussed with patient as this is a reversible risk factors that he has ongoing chronic respiratory failure. Also suggested that he may have KENRICK which is a causative factor - overnight pulse ox on 2L NC, AM ABG - pH 7.39, pCO2 78H, pO2 65L, HCO3 47H, O2 sat 92.6, Excess Base 17.9, Tristen - positive. Trilogy: Pt has severe obesity hypoventilation requiring the need for NIV- target tidal volume with adjustable pressures will help reduce pCO2 levels, increase oxygenation, and help improve overall respiratory status. Patient will require a battery backup as interruption or power failure may cause serious respiratory medical consequences and/ or even life threatening. Bipap has been considered and ruled out. #Acute and chronic hypoxia Suspect this is multifactorial including morbid obesity, OHS/KENRICK, new atrial fibrillation, and possible mild acute CHF not yet defined. Started diuresis with Lasix at 40 mg every 12 hours, consider increase pending I's and O's, daily weights. CXR showed some level of vascular congestion. Check 2D echo - unchanged from previous study, EF 55-60%, limited due to habitus. TSH - 1.052. HgbA1c - 6.1. Lipids - TRG - 95, Total 177, LDL 112, VLDL 19, HDL 46. Discharge with Lasix 40 mg. < 2,000 mg salt. Daily weights. #New onset a. fib Likely secondary to issues noted above, may also be a contributing cause. TSH 1.052. Patient's heart rate 67 on metoprolol 50 mg BID. Eliquis 5 mg BID. #Heart Failure This is likely an episode of diastolic failure and not a chronic condition. Continue to follow outpatient. Ambulatory pulse ox. #hx of R THR May be limiting motility. We will ask PT/OT to evaluate - rec home when medicall y stable FENI: heart healthy code status: full DVT ppx: Eliquis BID dispo: Med/tele Admission and Anticipated Discharge Date Admission Date: October 02, 2021 Supervising Physician Co-Signing Physician Notes I personally examined the patient and verified all martinez points of history and exam, discussed case, and agree with decision making with Dr Marcial feeling better feels up to going home. no new sob. explained dxs in detail he expresses good understanding. vitals noted nad heent nc at mmm breathing unlabored - no MARC with ~50ft ambulation wiht me, but does drop to 85% on RA with exertion - increases quickly at rest again. no focal neuro deficits. hypoxia, MARC - appearing to be multifactorial between acute diastolic CHF (likely mostly rate related HFpEF from afib RVR moreso than a chronic state - but will be determined in close and ongoing outpt f/u) - improving. 2 step - may need O2 at home for a bit KENRICK/OHS - appears to be quite severe, given desat to 41% even when on 2L, and given AM ABG w pCO2 78. clearly has severe obesity (BMI 63) hypoventilation requiring the need for NIV/target tidal volume wiht adjustable pressures to reduce pCO2/improve oxygenation and help improve overall respiratory status. pt will reqiure a batter backup as interruption or power failure may cause serious respiratory medical consequences and/or even life threatning conditions. Bipap has been considered but is almost certainly too static to meet his needs and the viability of this has been ruled out afib/RVR - due to KENRICK/OHS likely as underlying cause. rate controlled, anticogulated otherwise as above Subjective The patient notes that he is doing well today. He says his breathing has improved and he is ready to go home. Review of Systems Review of Systems: See subjective/HPI. Physical Exam Constitutional: + morbidly obese and cooperative; no acute distress Neck: trachea midline, no thyromegaly Respiratory: normal respiratory effort Auscultation: + diminished lung sounds; no crackles, no rhonchi and no wheezes Cardiovascular: Extremities: + edema (1-2+) Diminished heart sounds Gastrointestinal (Abdomen): Inspection/Auscultation: abdomen normal to inspection Percussion/Palpation: abdomen soft Skin: no rashes, warm and dry Results & Data Results & Data ([facility]) Vital Signs (Past 12 Hours) Vital Signs Temp Pulse Pulse Pulse Resp BP BP 10/04/21 04:09 36.5 C 69 16 138/96 10/04/21 01:47 84 10/03/21 20:10 10/03/21 23:02 74 10/03/21 22:58 69 10/03/21 21:52 57 L 10/03/21 19:24 36.6 C 88 20 132/88 Pulse Ox Pulse Ox O2 Del Method O2 Del Method O2 Flow Rate O2 Flow Rate 10/04/21 04:09 90 Nasal Cannula 2 10/04/21 01:47 95 Nasal Cannula 2 10/03/21 20:10 Nasal Cannula 2 10/03/21 23:02 93 Nasal Cannula 2 10/03/21 22:58 10/03/21 21:52 91 Nasal Cannula 2 10/03/21 19:24 94 Nasal Cannula 2 Laboratory Results 10/04/21 10/04/21 10/03/21 Range/Units 05:35 05:32 06:03 ABG pH 7.39 (7.35-7.45) ABG pCO2 78 H (35-46) mmHg ABG pO2 65 L (80-95) mmHg ABG HCO3 47 H (19-24) mmol/L ABG O2 Saturation 92.6 (90-95) % ABG Base Excess 17.9 H (-9-1.8) mEq/L Tristen Test Pos (Pos) Oxygen Given 2L Sodium 140 (136-145) mmol/L Potassium 3.8 (3.5-5.1) mmol/L Chloride 98 (98-107) mmol/L Carbon Dioxide 39 H (21-32) mmol/L Anion Gap 3 (3-11) BUN 15 (6-23) mg/dl Creatinine 1.07 (0.6-1.4) mg/dl Est Cr Clr Drug Dosing 128.9 ml/min Est GFR ( Amer) 85.8 ml/min Est GFR (Non-Af Amer) 74.0 ml/min BUN/Creatinine Ratio 14.0 (10-20) Glucose 92 (70-99(Fasting)) mg/dl Estimat Average Glucose 128 mg/dl Hemoglobin A1c 6.1 H (4.5-5.6) % Calcium 7.9 L (8.5-10.1) mg/dl Diagnostic Findings No new imaging Resident Activity Tracking Resident Involvement: Resident Care Provided Care Provided: Adult Hospital Medicine
[2021-10-04] MEDS: METOPROLOL TARTRATE 50 MG TAB PO SCH (08:54)
[2021-10-04] MEDS: FUROSEMIDE INJ 20 MG/2 ML VIAL IV SCH (08:55)
[2021-10-04] MEDS: APIXABAN 5 MG TABLET PO SCH (08:55)
[2021-10-04] MEDS ORDERED: POTASSIUM CHLORIDE CRTAB 20 MEQ TABCR PO ONE (09:00)
--- NOTE | 2021-10-04 12:38 | Cardiology Progress Note ---
Date of Service October 04, 2021 Assessment & Plan (1) New onset atrial fibrillation: Plan: -uncertain time of onset. -rate adequately controlled on metoprolol tartrate 50 mg b.i.d. -tolerating Eliquis 5 mg b.i.d. -echocardiogram notes normal left ventricular systolic function. -dysrhythmia may have predisposed him to fluid retention. -agree with Lasix 40 mg IV b.i.d. as his oxygen saturation is marginal on room air. (2) Hypertension: Plan: -BP improved on metoprolol tartrate. (3) LVH (left ventricular hypertrophy): Plan: -mild LVH on current echocardiogram. Admission and Anticipated Discharge Date Admission Date: October 02, 2021 Subjective The patient is resting comfortably the bedside chair without complaints of chest pain, dyspnea, or palpitations. Physical Exam Physical Exam: In general this is a morbidly obese white male in no acute distress. HEENT exam is negative. Neck is supple with full carotid upstrokes. There are no carotid bruits. Jugular venous pressure is flat at 90. There is no thyromegaly. Cardiovascular exam reveals an irregularly irregular rhythm with distant heart sounds. No obvious murmurs. Lungs are clear without rales, rhonchi or wheezes. Abdomen is obese. Extremities reveal intact radial artery pulses bilaterally. 1+ pretibial edema is noted. Feet and lower tibial regions erythematous but not warm. 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 PG Care Time/CCT Total # of Minutes Spent Total Time Spent with Patient: Total time spent is greater than 50% in coordination of care (as documented) at patient's floor/unit and/or counseling patient: Coding Level of Care Code 16249 Subseq Hosp Care Lvl 3 Diagnoses New onset atrial fibrillation I48.91 Hypertension I10 LVH (left ventricular hypertrophy) I51.7
--- NOTE | 2021-10-04 13:50 | Discharge Summary ---
Date of Service October 04, 2021 Admission HPI Per Admitting Provider This is a 58-year-old male with past medical history of previous right hip replacement, asthma, previous cellulitis that presents today complaining of shortness of breath. Patient is a good historian. Patient tells me that he has had worsening SOB/MARC over the course of the past year. 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 He has noticed that he has been slowly more dyspneic on exertion, fighting is to stop to catch his breath even after mild exertion. He denies any chest pain but does note occasional palpitations. He especially notes that when he wakes up in the middle of the night they tend to resolve on their own. He has noted worsening lower extremity edema as well. He has some erythema which is from previous of cellulitis but this has not gotten worse. He denies any infectious symptoms such as fever or chills. As the patient's condition worsen, he went to see his primary care provider for the first time in a number of years. At that time, he was found to be in atrial fibrillation which she did not previously have a history of. He was sent to the emergency room for further evaluation. Here, he was found to be in atrial fibrillation with a rate in the low 100s. He was also hypoxic and is currently stable on 3 L nasal cannula. Patient is now being admitted for further treatment. Admission Exam Per Admitting Provider Constitutional: + morbidly obese and cooperative; no acu te distress Neck: trachea midline, no thyromegaly Respiratory: normal respiratory effort Auscultation: + diminished lung sounds and + rales (? bases); no crackles, no rhonchi and no wheezes limited due to habitus Cardiovascular: Rate/Rhythm: + tachycardic and + irregularly irregular Heart Sounds: normal S1 and normal S2 Extremities: + edema (1-2+) limited by habitus, could not see neck vessels Gastrointestinal (Abdomen): Inspection/Auscultation: abdomen normal to inspection Percussion/Palpation: abdomen soft; abdomen nontender, no guarding, abdomen not rigid and no hepatosplenomegaly Musculoskeletal: mild erythema b/l shins, suspect venous stasis. Skin: no rashes, warm and dry Principal Diagnosis OHS Discharge Exam Constitutional + morbidly obese and cooperative; no acute distress Neck trachea midline, no thyromegaly Respiratory normal respiratory effort Auscultation: + diminished lung sounds and + rales (? bases); no crackles, no rhonchi and no wheezes Cardiovascular Rate/Rhythm: + tachycardic and + irregularly irregular Heart Sounds: normal S1 and normal S2 Extremities: + edema (1-2+) Gastrointestinal (Abdomen) Inspection/Auscultation: abdomen normal to inspection Percussion/Palpation: abdomen soft; abdomen nontender, no guarding, abdomen not rigid and no hepatosplenomegaly Skin no rashes, warm and dry Discharge Data Allergies Allergy/AdvReac Type Severity Reaction Status Date / Time cephalexin Allergy Intermediate HIVES WITH Verified 10/02/21 17:15 SHORTNESS OF BREATH Consultations 10/02/21 18:25 Consult Cardiology Routine Ordered Studies Chest X-Ray 10/02/21 12:44 SINGLE VIEW CHEST CLINICAL HISTORY: Preoperative examination. FINDINGS: An AP, portable, upright chest radiograph is compared to study dated 03/24/2018. The examination is degraded by portable technique, large body habitus, and apical lordotic positioning. The heart is enlarged. There is pulmonary vascular congestion. There is elevation of the right hemidiaphragm with bib asilar atelectasis. Question small pleural effusions. No pneumothorax is seen. The bony thorax is grossly intact. IMPRESSION: 1. Cardiomegaly with pulmonary vascular congestion. 2. Question small pleural effusions. ACT 112: Negative or not required by law. Electronically signed by: Jayce Antoine M.D. 10/02/2021 1:10 PM Hospital Course (1) Acute and chronic respiratory failure with hypoxia: (2) New onset atrial fibrillation: (3) Morbid obesity: (4) History of right hip replacement: (5) Obesity hypoventilation syndrome: Plan Ms. Guerrero is a 58 y/o gentleman with a PMHx of right THR, asthma, and previous cellulitis that presented with SOB now clinically improved and ready for discharge. Patient notes having worsening SOB/MARC over the last year. He retired around 4 years ago and notes that he has gained a significant amount of weight since stopping work.He has noticed that he has been slowly more dyspneic on exertion, with stopping to catch his breath even after mild exertion.He denies any chest pain but does note occasional palpitations.He especially notes that when he wakes up in the middle of the night they tend to resolve on their own.He has noted worsening lower extremity edema as well.He has some erythema which is from previous of cellulitis but this has not gotten worse.He denies any infectious symptoms such as fever or chills. As the patient's condition worsened, he went to see his primary care provider for the first time in a number of years. At that time, he was found to be in atrial fibrillation which he did not previously have a history of. He was sent to the emergency room for further evaluation. Here, he was found to be in atrial fibrillation with a rate in the low 100s. He was also hypoxic at that time. Currently stable on 3 L nasal cannula. #Obesity Hypoventilation Syndrome #Morbid obesity Discussed with patient as this is a reversible risk factors that he has ongoing chronic respiratory failure. Also suggested that he may have KENRICK which is a causative factor - overnight pulse ox on 2L NC, AM ABG - pH 7.39, pCO2 78H, pO2 65L, HCO3 47H, O2 sat 92.6, Excess Base 17.9, Tristen - positive. Case management to arrange BiPAP prior to discharge. #Acute and chronic hypoxia Suspect this is multifactorial including morbid obesity, OHS/KENRICK, new atrial fibrillation, and possible mild acute CHF not yet defined. Started diuresis with Lasix at 40 mg every 12 hours, consider increase pending I's and O's, daily weights. CXR showed some level of vascular congestion. Check 2D echo - unchanged from previous study, EF 55-60%, limited due to habitus. TSH - 1.052. HgbA1c - 6.1. Lipids - TRG - 95, Total 177, LDL 112, VLDL 19, HDL 46. Discharge with Lasix 40 mg. < 2,000 mg salt. Daily weights. #New onset a. fib Likely secondary to issues noted above, may also be a contributing cause. TSH 1.052. Patient's heart rate 67 on metoprolol 50 mg BID. Eliquis 5 mg BID. #Heart Failure This is likely an episode of diastolic failure and not a chronic condition. Continue to follow outpatient. Ambulatory pulse ox #hx of R THR May be limiting motility. We will ask PT/OT to evaluate - rec home when medically stable FENI: heart healthy code status: full DVT ppx: Eliquis BID dispo: Med/tele Total Time Total Time Spent Total Time Spent (In Minutes): See attending attestation. Discharge Plan Discharge Items Patient Disposition: Home - Self-Care Reason For Visit: ACUTE ON CHRONIC RESP FAILURE, N/O AF Discharge Diagnosis: Obesity Hypoventilation Syndrome, Acute on Chronic Resp Failure. New onset a. fib Activity: Per Instructions section Non-emergency contact: Primary Care Provider Call non-emergency contact if: you have any medication questions and your symptoms worsen Follow-up/Referrals: Ronnie Metzger DO [Primary Care Provider] - Radha Marcial MD [Resident] - 10/13/21 2:50 pm Diet: Low Sodium (2gm) Stand-Alone Forms: [email or web address], Smoking Cessation Medications and DC Order Prescriptions: No Action No Known Home Medications Krames/Other Patient Handouts: Prediabetes, 5 Steps for Eating Healthier Admission Data Admit Date/Time: 10/02/21 16:55 Attending Provider: Jaspal Newell Admit Provider: Tobi Ware Primary Care Provider: Ronnie Metzger Other Providers: Mian Sanchez
--- NOTE | 2021-10-04 14:52 | Billing Data ---
Date of Service October 04, 2021 Coding Level of Care Code 49756 Subseq Hosp Care Lvl 3
--- NOTE | 2021-10-04 15:35 | Discharge Summary ---
Date of Service October 04, 2021 Admission HPI Per Admitting Provider This is a 58-year-old male with past medical history of previous right hip replacement, asthma, previous cellulitis that presents today complaining of shortness of breath. Patient is a good historian. Patient tells me that he has had worsening SOB/MARC over the course of the past year. 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 He has noticed that he has been slowly more dyspneic on exertion, fighting is to stop to catch his breath even after mild exertion. He denies any chest pain but does note occasional palpitations. He especially notes that when he wakes up in the middle of the night they tend to resolve on their own. He has noted worsening lower extremity edema as well. He has some erythema which is from previous of cellulitis but this has not gotten worse. He denies any infectious symptoms such as fever or chills. As the patient's condition worsen, he went to see his primary care provider for the first time in a number of years. At that time, he was found to be in atrial fibrillation which she did not previously have a history of. He was sent to the emergency room for further evaluation. Here, he was found to be in atrial fibrillation with a rate in the low 100s. He was also hypoxic and is currently stable on 3 L nasal cannula. Patient is now being admitted for further treatment. Admission Exam Per Admitting Provider Constitutional: + morbidly obese and cooperative; no acu te distress Neck: trachea midline, no thyromegaly Respiratory: normal respiratory effort Auscultation: + diminished lung sounds and + rales (? bases); no crackles, no rhonchi and no wheezes limited due to habitus Cardiovascular: Rate/Rhythm: + tachycardic and + irregularly irregular Heart Sounds: normal S1 and normal S2 Extremities: + edema (1-2+) limited by habitus, could not see neck vessels Gastrointestinal (Abdomen): Inspection/Auscultation: abdomen normal to inspection Percussion/Palpation: abdomen soft; abdomen nontender, no guarding, abdomen not rigid and no hepatosplenomegaly Musculoskeletal: mild erythema b/l shins, suspect venous stasis. Skin: no rashes, warm and dry Principal Diagnosis OHS/KENRICK/Acute on chronic respiratory failure, new onset a. fib Discharge Exam Constitutional + morbidly obese and cooperative; no acute distress Neck trachea midline, no thyromegaly Respiratory normal respiratory effort Auscultation: + diminished lung sounds Cardiovascular Extremities: + edema (1-2+) Diminished heart sounds Gastrointestinal (Abdomen) Inspection/Auscultation: abdomen normal to inspection Percussion/Palpation: abdomen soft Skin no rashes, warm and dry Discharge Data Allergies Allergy/AdvReac Type Severity Reaction Status Date / Time cephalexin Allergy Intermediate HIVES WITH Verified 10/02/21 17:15 SHORTNESS OF BREATH Consultations 10/02/21 18:25 Consult Cardiology Routine Ordered Studies 10/04/21 10/04/21 Range/Units 05:35 05:32 ABG pH 7.39 (7.35-7.45) ABG pCO2 78 H (35-46) mmHg ABG pO2 65 L (80-95) mmHg ABG HCO3 47 H (19-24) mmol/L ABG O2 Saturation 92.6 (90-95) % ABG Base Excess 17.9 H (-9-1.8) mEq/L Tristen Test Pos (Pos) Oxygen Given 2L Sodium 140 (136-145) mmol/L Potassium 3.8 (3.5-5.1) mmol/L Chloride 98 (98-107) mmol/L Carbon Dioxide 39 H (21-32) mmol/L Anion Gap 3 (3-11) BUN 15 (6-23) mg/dl Creatinine 1.07 (0.6-1.4) mg/dl Est Cr Clr Drug Dosing 128.9 ml/min Est GFR ( Amer) 85.8 ml/min Est GFR (Non-Af Amer) 74.0 ml/min BUN/Creatinine Ratio 14.0 (10-20) Glucose 92 (70-99(Fasting)) mg/dl Calcium 7.9 L (8.5-10.1) mg/dl Chest X-Ray 10/02/21 12:44 SINGLE VIEW CHEST CLINICAL HISTORY: Preoperative examination. FINDINGS: An AP, portable, upright chest radiograph is compared to study dated 03/24/2018. The examination is degraded by portable technique, large body habitus, and apical lordotic positioning. The heart is enlarged. There is pulmonary vascular congestion. There is elevation of the right hemidiaphragm with bibasilar atelectasis. Question small pleural effusions. No pneumothorax is seen. The bony thorax is grossly intact. IMPRESSION: 1. Cardiomegaly with pulmonary vascular congestion. 2. Question small pleural effusions. ACT 112: Negative or not required by law. Electronically signed by: Jayce Antoine M.D. 10/02/2021 1:10 PM Hospital Course (1) Acute and chronic respiratory failure with hypoxia: (2) New onset atrial fibrillation: (3) Morbid obesity: (4) History of right hip replacement: (5) Obesity hypoventilation syndrome: Plan Ms. Guerrero is a 58 y/o gentleman with a PMHx of right THR, asthma, and previous cellulitis that presented with SOB now clinically improved and ready for di scharge - waiting on approval for Trilogy. Patient notes having worsening SOB/MARC over the last year. He retired around 4 years ago and notes that he has gained a significant amount of weight since s topping work.He has noticed that he has been slowly more dyspneic on exertion, with stopping to catch his breath even after mild exertion.He denies any chest pain but does note occasional palpitations.He especially notes that when he wakes up in the middle of the night they tend to resolve on their own.He has noted worsening lower extremity edema as well.He has some erythema which is from previous of cellulitis but this has not gotten worse.He denies any infectious symptoms such as fever or chills. As the patient's condition worsened, he went to see his primary care provider for the first time in a number of years. At that time, he was found to be in atrial fibrillation which he did not previously have a history of. He was sent to the emergency room for further evaluation. Here, he was found to be in atrial fibrillation with a rate in the low 100s. He was also hypoxic at that time. Currently stable on 3 L nasal cannula. #Obesity Hypoventilation Syndrome #Morbid obesity Discussed with patient as this is a reversible risk factors that he has ongoing chronic respiratory failure. Also suggested that he may have KENRICK which is a causative factor - overnight pulse ox on 2L NC, AM ABG - pH 7.39, pCO2 78H, pO2 65L, HCO3 47H, O2 sat 92.6, Excess Base 17.9, Tristen - positive. Trilogy: Pt has severe obesity hypoventilation requiring the need for NIV- target tidal volume with adjustable pressures will help reduce pCO2 levels, increase oxygenation, and help improve overall respiratory status. Patient will require a battery backup as interruption or power failure may cause serious respiratory medical consequences and/ or even life threatening. Bipap has been considered and ruled out. It was recommended that the patient stay in the hospital until the device arrives, but the patient elected to go home. He understood the risks and benefits of staying vs leaving. #Acute and chronic hypoxia Suspect this is multifactorial including morbid obesity, OHS/KENRICK, new atrial fibrillation, and possible mild acute CHF not yet defined. Started diuresis with Lasix at 40 mg every 12 hours, consider increase pending I's and O's, daily weights. CXR showed some level of vascular congestion. Check 2D echo - unchanged from previous study, EF 55-60%, limited due to habitus. TSH - 1.052. HgbA1c - 6.1. Lipids - TRG - 95, Total 177, LDL 112, VLDL 19, HDL 46. Discharge with Lasix 40 mg. < 2,000 mg salt. Daily weights. #New onset a. fib Likely secondary to issues noted above, may also be a contributing cause. TSH 1.052. Patient's heart rate 67 on metoprolol 50 mg BID. Eliquis 5 mg BID. #Heart Failure This is likely an episode of diastolic failure and not a chronic condition. Continue to follow outpatient. Ambulatory pulse ox. #hx of R THR May be limiting motility. We will ask PT/OT to evaluate - rec home when medically stable FENI: heart healthy code status: full DVT ppx: Eliquis BID dispo: home Total Time Total Time Spent Total Time Spent (In Minutes): See attending attestation. Discharge Plan Discharge Items Patient Disposition: Home - Self-Care Reason For Visit: ACUTE ON CHRONIC RESP FAILURE, N/O AF Discharge Diagnosis: Obesity Hypoventilation Syndrome, Acute on Chronic Resp Failure. New onset a. fib Activity: Per Instructions section Non-emergency contact: Primary Care Provider Call non-emergency contact if: you have any medication questions and your symptoms worsen Follow-up/Referrals: Mian Sanchez MD [Physician] - Ronnie Metzger DO [Primary Care Provider] - Edwige Shahid DO [Physician] - Radha Marcial MD [Resident] - 10/13/21 2:50 pm Diet: Low Sodium (2gm) Addtl Attending Provider Instructions: You were seen here in the hospital because of your breathing. You were experiencing shortness of breath with activity. In terms of your shortness of breath - this has improved, but you are still requiring supplemental oxygen as your levels went down to the mid 80s while walking. We are sending you with temporary home oxygen with more arriving likely tomorrow. We will also send you out with Lasix (furosemide) to help get more of the fluid off of you. You were also seen because a visit to your primary care doctor revealed new onset a. fib. We prescribed a blood thinner to prevent stroke, Eliquis 5 mg twice a day, and metoprolol, 50mg twice a day, to help keep your heart from racing. Follow up with cardiology - Dr. Sanchez. You were also diagnosed with obesity hypoventilation syndrome (OHS) which is similar to obstructive sleep apnea (KENRICK), but there are longer periods of time where you are not breathing. We have put in the orders for Trilogy, but it will likely not arrive until Saturday. Please use Trilogy every time you sleep to avoid build up of carbon dioxide, which can have severe consequences. Follow up with sleep/pulm. You may have had an acute episode of heart failure. This will be further worked up outpatient. Follow up visit with your primary care doctor - Dr. Marcial 10/13/21 at 2:50 pm. It was recommended that you stay in the hospital until the device arrives. You have decided to not wait. It was great being a part of your care team! Pending Studies at Discharge: No Stand-Alone Forms: [facility], Sm[facility] Cess[facility] Medications and DC Order Prescriptions: New Eliquis 5 mg Tablet 5 mg PO BID Qty: 60 0RF metoprolol tartrate 50 mg Tablet 50 mg PO BID Qty: 60 0RF furosemide 40 mg tablet 40 mg PO DAILY Qty: 30 0RF Discharge Orders: Discharge Order (Routine); Ordered 10/04/21 Ordered By: Radha Villeda/Other Patient Handouts: Prediabetes, 5 Steps for Eating Healthier Admission Data Admit Date/Time: 10/02/21 16:55 Attending Provider: Jaspal Newell Admit Provider: Tobi Ware Primary Care Provider: Ronnie Metzger Other Providers: Mian Sanchez Supervising Physician Co-Signing Physician Notes I personally examined the patient and verified all martinez points of history and exam, discussed case, and agree with decision making with Dr Marcial feeling better feels up to going home. no new sob. vitals noted nad heent nc at mmm breathing unlabored - no MARC with ~50ft ambulation wiht me, but does drop to 85% on RA with exertion - increases quickly at rest again. no focal neuro deficits. hypoxia, MARC - appearing to be multifactorial between acute diastolic CHF (likely mostly rate related HFpEF from afib RVR moreso than a chronic state - but will be determined in close and ongoing outpt f/u) - improving. 2 step - may need O2 at home for a bit KENRICK/OHS - appears to be quite severe, given desat to 41% even when on 2L, and given AM ABG w pCO2 78. clearly has severe obesity (BMI 63) hypoventilation requiring the need for NIV/target tidal volume wiht adjustable pressures to reduce pCO2/improve oxygenation and help improve overall respiratory status. pt will reqiure a batter backup as interruption or power failure may cause serious respiratory medical consequences and/or even life threatning conditions. Bipap has been considered but is almost certainly too static to meet his needs and the viability of this has been ruled out afib/RVR - due to KENRICK/OHS likely as underlying cause. rate controlled, anticogulated otherwise as above As a late addendum to the plan of aboveCase management was not able to get noninvasive ventilation set up todaywas clear to the patient in our discussions of his hypoventilation that while he is probably been living this way slowly worsening over several months to years, he truly is in a range where at least theoretically he could fall asleep and not wake up. 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 Resident Activity Tracking Resident Involvement: Resident Care Provided Care Provided: Adult Hospital Medicine
--- NOTE | 2021-10-04 17:45 | Billing Data ---
Date of Service October 04, 2021 Coding Level of Care Code D/C DAY MANAGEMENT <30 MINS
== END 2021-10-04 18:25 | disposition home or self-care (01) | DRG 291 ==
LOC: ED 12:31 → SUATTDRO 16:55 → 2E 16:55